=== PATIENT | female | born 1950 | race Caucasian/White ===

== ENCOUNTER 2024-06-26 16:31 | Emergency (ER) | payer MEDICARE, MEDICAID, SELFPAY ==
[2024-06-26] VITALS (7 sets, daily range): BP systolic 102–132; BP diastolic 62–79; PULSE 80–106; RESP 16–22; TEMP 37.6; O2SAT 96–97
--- NOTE | ~2024-06-26 | XR_ITS ---
CHEST RADIOGRAPH CLINICAL HISTORY: cough . COMPARISON: None available TECHNIQUE: Single portable view of the chest. FINDINGS Right internal jugular central venous port catheter identified with its tip projecting over the cavoa trial junction. The remainder of the cardiomediastinal silhouette is otherwise unremarkable. The lungs are clear. IMPRESSION: No focal infiltrate or effusion. Reviewed, dictated and finalized at location A. TER PROCESSED FILM
--- NOTE | 2024-06-26 17:17 | ED.URI ---
HPI - URI/Sore Throat General Chief Complaint: Upper Respiratory Infection Stated Complaint: weakness Time Seen by Provider: 06/26/24 17:06 History of Present Illness HPI Narrative: Patient presenting with cough, congestion, shortness of breath. No CP, abd pain, n/v. Related Data Allergies Allergy/AdvReac Type Severity Reaction Status Date / Time No Known Allergies Allergy Unverified 12/11/15 12:39 Review of Systems Review of Systems: All systems reviewed & are unremarkable except as noted in HPI and below Exam Narrative: EXAMINATION OF ORGAN SYSTEMS/BODY AREAS: Constitutional: Vital signs per nursing GENERAL: Actively coughing HEAD: Normal with no signs of head trauma. EYES: EOMI, conjunctiva normal ENT: Hearing grossly intact LUNGS: Coughing; some wheezes HEART: [Regular rate and rhythm] ABD: [Soft], [nontender to palpation] EXT: Normal range of motion SKIN: [No rashes or lesions.] NEURO: [Alert. No gross focal sensory or strength deficits.] PSYCH: Normal affect Course Vital Signs Vital signs: Vital Signs Temperature 99.6 F 06/26/24 16:31 Pulse Rate 104 H 06/26/24 16:31 Respiratory Rate 19 06/26/24 16:31 Blood Pressure 130/62 06/26/24 16:31 Pulse Oximetry 96 06/26/24 16:31 Oxygen Delivery Room Air 06/26/24 16:31 Temperature 99.6 F 06/26/24 16:31 Pulse Rate 102 H 06/26/24 17:40 Respiratory Rate 22 H 06/26/24 17:40 Blood Pressure 130/62 06/26/24 16:31 Pulse Oximetry 96 06/26/24 16:31 Oxygen Delivery Room Air 06/26/24 17:22 MDM - URI/Sore Throat MDM Narrative Medical decision making narrative: ED COURSE AND MEDICAL DECISION MAKING: This 74 year old patient presents with symptoms most suggestive of viral upper respiratory tract infection. She is coughing continuously. Patient is treated symptomatically with DuoNeb On reevaluation, she states she feels much better, she is now sleeping comfortably. She did test positive for flu, given her age and risk factors I will start her on Tamiflu, she will be discharged back to [facility] in stable condition with expectant management. Return precautions were provided. Lab Data Labs: Lab Results 02/13/25 Range/Units 17:14 Influenza A (RT-PCR) Positive A (Negative) Influenza B (RT-PCR) Negative (Negative) RSV (RT-PCR) Negative (Negative) SARS-CoV-2 RNA (RT-PCR) Negative (Negative) Discharge Plan Discharge Clinical Impression: Influenza Patient Disposition: NH Snf/Asst Living Condition: Stable Instructions: Influenza (ED) Additional Instructions: Please follow up with your doctor; you can always return for any further issues. Patient Language: Afghan Prescriptions: New oseltamivir [Tamiflu] 75 mg capsule 75 mg PO Q12H 5 Days Qty: 10 0RF acetaminophen [Tylenol Extra Strength] 500 mg tablet 1,000 mg PO Q6H PRN (Reason: pain) Qty: 50 0RF albuterol sulfate 90 mcg/actuation HFA aerosol inhaler 2 puff inhalation QID PRN (Reason: shortness of breath or wheezing) Qty: 8.5 0RF fluticasone propionate [Allergy Relief (fluticasone)] 50 mcg/actuation spray,suspension 1 spray intranasal DAILY Qty: 16 0RF Rx Instructions: administer into each nostril Follow-up/Referrals: Reji,AILIN Ryan [Primary Care Provider] - 2 Days
--- OUTSIDE RECORDS SUMMARY | 2024-06-26 17:28 | XMS_ITS | Clinical Summary ---
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 This disclosure is being madepursuant to the Care Everywhere program and may not contain all information available regarding this patient. Last updated [email or web address] Allergies No known active allergies Medications * Be aware that medications may not be up to date on this document. Alwaysverify current medications with the patient. Medication Sig Dispensed Refills Start Date End Date Status atorvastatin (LIPITOR) 40 MG tablet Take 40 mg by mouth once daily Active MULTIPLE VITAMIN PO Activ e gabapentin PHN (GRALISE) 300 MG tablet Take 300 mg by mouth daily with dinner Active ezetimibe (ZETIA) 10 MG tablet Take 10 mg by mouth once daily Active busPIRone (BUSPAR) 5 MG tablet Take 5 mg by mouth 2 times daily Active fenofibrate (FENOGLIDE) 120 MG Take 120 mg by mouth once daily Active donepezil (ARICEPT) 10 MG tablet Take 10 mg by mouth at bedtime Active losartan (COZAAR) 25 MG tablet Take 25 mg by mouth once daily Active acetaminophen (TYLENOL) 325 MG tablet Take 2 (two) tablets by mouth every 4 hours Maximum allowable Acetaminophen amount = 4 Grams (4000 mg) / 24 hours. 08/03/2021 Active trimethobenzamide (TIGAN) injection Inject 2 mL into muscle once as needed for Nausea/Vomiting 08/03/2021 Active bisacodyl (DULCOLAX) 10 MG suppository Insert 1 (one) suppository into the rectum once daily as needed for Constipation 08/03/2021 Active polyethylene glycol 3350 (MIRALAX) 17 g packet Take 17 (seventeen) g by mouth 2 times daily 08/03/2021 Active senna-docusate (SENOKOT-S) 8.6-50 MG tablet Take 1 (one) tablet by mouth 2 times daily 08/03/2021 Active vitamin D3 (CHOLECALCIFEROL) 25 MCG (1000 UNITS) tablet Take 1 (one) tablet by mouth once daily 08/03/2021 Active alendronate (FOSAMAX) 70 MG tablet Take 1 (one) tablet by mouth every 7 days before meal Take in morning with full glass of water on empty stomach and remain upright for 30 min 4 tablet 08/03/2021 Active memantine ER 24 hr (NAMENDA XR) 14 MG capsule Take 1 (one) capsule by mouth once daily 0 08/03/2021 Active atorvastatin (LIPITOR) 40 MG tablet Take 40 mg by mouth at bedtime Active Active Problems Problem Noted Date Diagnosed Date Dementia, vascular 08/01/2021 Impaired mobility 07/25/2021 Acute blood loss anemia 07/25/2021 Fall 07/24/2021 Open fracture of left femur 07/24/2021 Immunizations Name Administration Dates Next Due TDAP (7yrs+) 07/24/2021 Social History Tobacco Use Types Packs/Day Years Used Date Smoking Tobacco: Never Smokeless Tobacco: Never Alcohol Use Standard Drinks/Week Comments Never 0 (1 standard drink = 0.6 oz pur e alcohol) AUDIT-C Answer Date Recorded Q1: How often do you have a drink containing alc ohol? Never 07/24/2021 Average Number of Drinks Not on file 022 Q3: How often do you have si x or more drinks on one occasion? Never 07/24/2021 Sex and Gender Information Value Date Recorded Sex Assigned at Not on file Gender Identity Not on file Sexual Orientation Not on file Last Filed Vital Signs Vital Sign Reading Time Taken Comments Blood Pressure 133/66 08/03/2021 11:37 AM CDT Pulse 86 08/03/2021 11:37 AM CDT Temperature 36.7 C (98.1 F) 08/03/2021 11:37 AM CDT Respiratory Rate 18 08/03/2021 11:37 AM CDT Oxygen Saturation 96% 08/03/2021 11:37 AM CDT Inhaled Oxygen Concentration 21% 08/03/2021 4 :18 AM CDT Weight 101.2 kg (223 lb) 12/26/2021 11:29 AM CDT Height 165.1 cm (5' 5 ) 11/21/2021 12:22 PM CDT Body Mass Index 37.11 11/21/2021 12:22 PM CDT Plan of Treatment Health Maintenance Due Date Last Done Comments BONE DENSITY TESTING 1950 COLOGUARD (AGES 45-75) - COL ON CA SCREENING 1950 COLON MONITORING 1950 COLONOSCOPY - COLON CA SCREENING 1950 CT COLONOGRAPHY - COLON CA SCREENING 1950 Colorectal Cancer Screening 1950 FIT - COLON CA SCREENING 1950 FLEX SIG - COLON CA SCREENING 1950 MAMMOGRAM 1950 MEDICARE AWV 12 MONTHS 1950 HEPATITIS C SCREENING 04/25/1968 PNEUMOCOCCAL VACCINE 50+ (1 of 1 - PCV) 2000 ZOSTER VACCINE (1 of 2) 2000 Respiratory Syncytial Virus (RSV) Vaccine Pt: or over 60 yrs (1 - Risk 60-74 years 1-dose series) 2010 COVID-19 VACCINE ( - 2023-2 5 season) 2024 INFLUENZA VACCINE (#1) 2024 7, 04/25/2016, 03/12/2015 DEPRESSION SCREENING 05/14/2024 DTAP/TDAP/TD VACCINES (2 - T d or Tdap) 07/25/2031 07/24/2021 HEPATITIS B VACCINE Aged Out No longe r eligible based on patient's age to complete this topic HIB VACCINE Aged Out No longer eligi ble based on patient's age to complete this topic HPV VACCINE Aged Out No longer eligi ble based on patient's age to complete this topic MENINGOCOCCAL (Group B) VACCINE Aged Out No longer eligible b ased on patient's age to complete this topic MENINGOCOCCAL VACCINE Aged Out No yonathan melissa eligible based on patient's age to complete this topic Medical Devices Implanted Type Area Benefits Officer Device Identifier Shelf Expiration Date Model / Serial / Lot Pin Hlf 255mm 5mm Jtx Lng Ss 35mm Extfix Implanted:Qty: 2 on 07/24/2021 by Ray David MD at [facility] Left: Femur [employer] [id number] / / Pin Hlf 225mm 5mm Jtx Lng Orth Ss 40mm Implanted:Qty: 2 on 07/24/2021 by Ray David MD at [facility] Left: Femur [employer] [id number] / / Screw 4.5mm 40mm Ft Hex Fem Rodrigue Dist Implanted:Qty: 1 on 07/27/2021 by Malena Simon MD at [facility] Left: Femur [employer] [id number] / / Screw 4.5mm 42mm Ft Rodrigue Nonster Bone Implanted:Qty: 1 on 07/27/2021 by Malena Simon MD at [facility] Left: Femur [employer] [id number] / / Plate 12 Hl Lck Precontr Fem Lt Dist Implanted:Qty: 1 on 07/27/2021 by Malena Simon MD at [facility] Left: Femur [employer] 12/20/2026 [id number] / / [id number] Screw 8mm 85mm Ft Maribeth Lck Fem Tib Prox Implanted:Qty: 1 on 07/27/2021 by Malena Simon MD at [facility] Left: Femur [employer] [id number] / / Screw 5.5mm 80mm Ft Pa Lck Tib Canc Prox Implanted:Qty: 1 on 07/27/2021 by Malena Simon MD at [facility] Left: Femur [employer] [id number] / / Screw 5.5mm 75mm Ft Pa Lck Tib Canc Prox Implanted:Qty: 3 on 07/27/2021 by Malena Simon MD at [facility] Left: Femur [employer] [id number] / / Screw 4.5mm 38mm Ft [employer] Nonster Bone Implanted:Qty: 2 on 07/27/2021 by Malena Simon MD at [facility] Left: Femur [employer] [id number] / / Explanted Type Area Benefits Officer Device Identifier Shelf Expiration Date Model / Serial / Lot Gd Pin Orth 3.2mm Polyax Fem Clbrt Lck Explanted:Qty: 1 on 07/27/2021 by Malena Simon MD at [facility] Left: Femur [employer] [id number] / / Wire K 1.6mm 6in Hlf Bynt Pnt Ss Fx Explanted:Qty: 2 on 07/27/2021 by Malena Simon MD at [facility] Left: Femur [employer] [id number] / / Advance Directives * Full Code (Latest Code Status on File) Date Activated Date Inactivated Comments 07/24/2021 5:34 PM 08/03/2021 2:33 PM Care Teams [employer] Work Supervisor Relationship Specialty Start Date End Date Mendez Mendoza, JANELL-JOSE [address] [place] [id number] PCP - General 07/25/21
--- OUTSIDE RECORDS SUMMARY | 2024-06-26 17:28 | XMS_ITS | Patient Health Summary ---
Author Organization [facility] Chat [employer] Address [address] [address] Care Team Providers Care Salad Counter Attendant Name Role Phone Mendez Mendoza SPECIAL SKILLS OFFICER-CORRESPONDENCE COORDINATOR Primary Care Provider Note from [facility],non-owned Affiliates and Associated Physician Practices is amultiple site organization consisting of ambulatory clinics and hospital sitesin [place], [place], [place] and [place]. This disclosure is being madepursuant to the Care Everywhere program and may not contain all information available regarding this patient. Last updated 18.[facility] [employer] Allergies No known active allergies Medications * Be aware that medications may not be up to date on this document. Alwaysverify current medications with the patient. * atorvastatin (LIPITOR) 40 MG tablet Take 40 mg by mouth once daily * MULTIPLE VITAMIN PO * gabapentin PHN (GRALISE) 300 MG tablet Take 300 mg by mouth daily with dinner * ezetimibe (ZETIA) 10 MG tablet Take 10 mg by mouth once daily * busPIRone (BUSPAR) 5 MG tablet Take 5 mg by mouth 2 times daily * fenofibrate (FENOGLIDE) 120 MG Take 120 mg by mouth once daily * donepezil (ARICEPT) 10 MG tablet Take 10 mg by mouth at bedtime * losartan (COZAAR) 25 MG tablet Take 25 mg by mouth once daily * acetaminophen (TYLENOL) 325 MG tablet(Started 08/03/2021) Take 2 (two) tablets by mouth every 4 hours Maximum allowable Acetaminophen amount = 4 Grams (4000 mg) / 24 hours. * trimethobenzamide (TIGAN) injection(Started 08/03/2021) Inject 2 mL into muscle once as needed for Nausea/Vomiting * bisacodyl (DULCOLAX) 10 MG suppository(Started 08/03/2021) Insert 1 (one) suppository into the rectum once daily as needed for Constipation * polyethylene glycol 3350 (MIRALAX) 17 g packet(Started 08/03/2021) Take 17 (seventeen) g by mouth 2 times daily * senna-docusate (SENOKOT-S) 8.6-50 MG tablet(Started 08/03/2021) Take 1 (one) tablet by mouth 2 times daily * vitamin D3 (CHOLECALCIFEROL) 25 MCG (1000 UNITS) tablet(Started 08/03/2021) Take 1 (one) tablet by mouth once daily * alendronate (FOSAMAX) 70 MG tablet(Started 08/03/2021) Take 1 (one) tablet by mouth every 7 days before meal Take in morning with full glass of water on empty stomach and remain upright for 30 min * memantine ER 24 hr (NAMENDA XR) 14 MG capsule(Started 08/03/2021) Take 1 (one) capsule by mouth once daily * atorvastatin (LIPITOR) 40 MG tablet Take 40 mg by mouth at bedtime Active Problems Problem Noted Date Diagnosed Date Dementia, vascular 08/01/2021 Impaired mobility 07/25/2021 Acute blood loss anemia 07/25/2021 Fall 07/24/2021 Open fracture of left femur 07/24/2021 Immunizations * TDAP (7yrs+)(Given 07/24/2021) Social History Tobacco Use Types Packs/Day Years [...] Mass Index 37.11 11/21/2021 12:22 PM CDT Medical Devices Implanted Type Area Center Aisle Cashier Device Identifier Shelf Expiration Date Model / Serial / Lot Pin Hlf 255mm 5mm Jtx Lng Ss 35mm Extfix Implanted:Qty: 2 on 07/24/2021 by Ray David MD at [facility] Left: Femur [employer] [id number] / / Pin Hlf 225mm 5mm Jtx Lng Orth Ss 40mm Implanted:Qty: 2 on 07/24/2021 by Ray David MD at [facility] Left: Femur [employer] [id number] / / Screw 4.5mm 40mm Ft Hex Fem Rodrigue Dist Implanted:Qty: 1 on 07/27/2021 by Malena Simon MD at [facility] Left: Femur [employer] [id number] / / Screw 4.5mm 42mm Ft Rodrigue Nonster Bone Implanted:Qty: 1 on 07/27/2021 by Malena Simon MD at [facility] Left: Femur [employer] [id number] / / Plate 12 Hl Lck Precontr Fem Lt Dist Implanted:Qty: 1 on 07/27/2021 by Malena Simon MD at [facility] Left: Femur [employer] 12/20/2026 [id number] / / [id number] Screw 8mm 85mm Ft Maribeth Lck Fem Tib Prox Implanted:Qty: 1 on 07/27/2021 by Malena Simon MD at [facility] Left: Femur [employer] [id number] / / Screw 5.5mm 80mm Ft Pa Lck Tib Canc Prox Implanted:Qty: 1 on 07/27/2021 by Malena Simon MD at [facility] Left: Femur [employer] [id number] / / Screw 5.5mm 75mm Ft Pa Lck Tib Canc Prox Implanted:Qty: 3 on 07/27/2021 by Malena Simon MD at [facility] Left: Femur [employer] [id number] / / Screw 4.5mm 38mm Ft Rodrigue Nonster Bone Implanted:Qty: 2 on 07/27/2021 by Malena Simon MD at [facility] Left: Femur [employer] [id number] / / Explanted Type Area Center Aisle Cashier Device Identifier Shelf Expiration Date Model / Serial / Lot Gd Pin Orth 3.2mm Polyax Fem Clbrt Lck Explanted:Qty: 1 on 07/27/2021 by Malena Simon MD at [facility] Left: Femur [employer] [id number] / / Wire K 1.6mm 6in Hlf Bynt Pnt Ss Fx Explanted:Qty: 2 on 07/27/2021 by Malena Simon MD at [facility] Left: Femur [employer] [id number] / / Procedures * XR FEMUR LEFT 2VW(Performed 12/26/2021) Performed for Periprosthetic fracture of femur at tip of prosthesis, subsequent encounter * XR FEMUR LEFT 2VW(Performed 11/21/2021) Performed for Periprosthetic fracture of femur at tip of prosthesis, subsequent encounter * APHERESIS/TRANSFUSION ORDER(Performed 09/30/2021) * XR FEMUR LEFT 2VW(Performed 09/12/2021) Performed for Type III open fracture of left femur, unspecified fracture morphology, unspecified portion of femur, initial encounter ([facility]) * PHOSPHORUS BLOOD(Performed 08/03/2021) * MAGNESIUM BLOOD(Performed 08/03/2021) * BASIC METABOLIC PANEL (CALCIUM TOTAL)(Performed 08/03/2021) * CBC W AUTO DIFFERENTIAL(Performed 08/03/2021) * SARS-COV-2 (COVID-19) RAPID(Performed 08/02/2021) * TSH REFLEX FREE T4(Performed 08/02/2021) * VITAMIN B12(Performed 08/02/2021) * SYPHILIS ANTIBODY CASCADING REFLEX(Performed 08/02/2021) * PHOSPHORUS BLOOD(Performed 08/02/2021) * MAGNESIUM BLOOD(Performed 08/02/2021) * BASIC METABOLIC PANEL (CALCIUM TOTAL)(Performed 08/02/2021) * CBC W AUTO DIFFERENTIAL(Performed 08/02/2021) * XR ABDOMEN KUB PORTABLE(Performed 08/01/2021) Performed for Type I or II open fracture of left femur, unspecified fracture morphology, unspecified portion of femur, initial encounter ([facility]) * VITAMIN D 25-HYDROXY(Performed 08/01/2021) * TSH REFLEX FREE T4(Performed 08/01/2021) * PHOSPHORUS BLOOD(Performed 08/01/2021) * MAGNESIUM BLOOD(Performed 08/01/2021) * BASIC METABOLIC PANEL (CALCIUM TOTAL)(Performed 08/01/2021) * CBC W AUTO DIFFERENTIAL(Performed 08/01/2021) * PHOSPHORUS BLOOD(Performed 07/31/2021) * MAGNESIUM BLOOD(Performed 07/31/2021) * BASIC METABOLIC PANEL (CALCIUM TOTAL)(Performed 07/31/2021) * CBC W AUTO DIFFERENTIAL(Performed 07/31/2021) * PHOSPHORUS BLOOD(Performed 07/30/2021) * MAGNESIUM BLOOD(Performed 07/30/2021) * BASIC METABOLIC PANEL (CALCIUM TOTAL)(Performed 07/30/2021) * CBC W AUTO DIFFERENTIAL(Performed 07/30/2021) * SARS-COV-2 (COVID-19) RAPID(Performed 07/29/2021) * GLUCOSE - POINT OF CARE(Performed 07/29/2021) * PREPARE RBC LEUKOREDUCED UNIT(Performed 07/29/2021) * TYPE + SCREEN PANEL(Performed 07/29/2021) * PHOSPHORUS BLOOD(Performed 07/29/2021) * MAGNESIUM BLOOD(Performed 07/29/2021) * BASIC METABOLIC PANEL (CALCIUM TOTAL)(Performed 07/29/2021) * CBC W AUTO DIFFERENTIAL(Performed 07/29/2021) * PHOSPHORUS BLOOD(Performed 07/28/2021) * MAGNESIUM BLOOD(Performed 07/28/2021) * BASIC METABOLIC PANEL (CALCIUM TOTAL)(Performed 07/28/2021) * CBC W AUTO DIFFERENTIAL(Performed 07/28/2021) * PREPARE RBC LEUKOREDUCED UNIT(Performed 07/28/2021) * PREPARE RBC LEUKOREDUCED UNIT(Performed 07/28/2021) * CBC W/O DIFFERENTIAL(Performed 07/27/2021) * XR FEMUR LEFT 2VW(Performed 07/27/2021) Performed for Type I or II open fracture of left femur, unspecified fracture morphology, unspecified portion of femur, initial encounter ([facility]) * FL DINO SURGERY(Performed 07/27/2021) Performed for Type III open fracture of neck of left femur, initial encounter ([facility]) * CULTURE WOUND+GRAM STAIN(Performed 07/27/2021) * CULTURE ANAEROBE(Performed 07/27/2021) * TRANSFUSE RED BLOOD CELL LEUKOREDUCED UNIT(S)(Performed 07/27/2021) * PREPARE RBC LEUKOREDUCED UNIT(Performed 07/27/2021) * REMOVAL EXTERNAL FIXATION LOWER EXTREMITY(Performed 07/27/2021) Performed for Closed fracture of left femur with routine healing, unspecified fracture morphology, unspecified portion of femur, subsequent encounter * OPEN REDUCTION INTERNAL FIXATION (ORIF) FEMUR(Performed 07/27/2021) Performed for Closed fracture of left femur with routine healing, unspecified fracture morphology, unspecified portion of femur, subsequent encounter * ENDOTRACHEAL TUBE NOTE(Performed 07/27/2021) * PHOSPHORUS BLOOD(Performed 07/27/2021) * MAGNESIUM BLOOD(Performed 07/27/2021) * BASIC METABOLIC PANEL (CALCIUM TOTAL)(Performed 07/27/2021) * CBC W AUTO DIFFERENTIAL(Performed 07/27/2021) * PHOSPHORUS BLOOD(Performed 07/26/2021) * MAGNESIUM BLOOD(Performed 07/26/2021) * BASIC METABOLIC PANEL (CALCIUM TOTAL)(Performed 07/26/2021) * CBC W AUTO DIFFERENTIAL(Performed 07/26/2021) * PT EVAL AND TREAT(Performed 07/25/2021) * OT EVAL AND TREAT(Performed 07/25/2021) * HEPATIC FUNCTION PANEL(Performed 07/25/2021) * PHOSPHORUS BLOOD(Performed 07/25/2021) * MAGNESIUM BLOOD(Performed 07/25/2021) * BASIC METABOLIC PANEL (CALCIUM TOTAL)(Performed 07/25/2021) * CBC W AUTO DIFFERENTIAL(Performed 07/25/2021) * XR FEMUR LEFT 2VW(Performed 07/24/2021) Performed for Type I or II open fracture of left femur, unspecified fracture morphology, unspecified portion of femur, initial encounter ([facility]), Type I or II open displaced fracture of lateral condyleof left femur, initial encounter ([facility]) * FL DINO SURGERY(Performed 07/24/2021) Performed for Fall, initial encounter * OPEN REDUCTION INTERNAL FIXATION (ORIF) FEMUR(Performed 07/24/2021) Performed for Fracture * ENDOTRACHEAL TUBE NOTE(Performed 07/24/2021) * CT ANGIO LOWER EXTREMITY LEFT(Performed 07/24/2021) Performed for Fall, initial encounter * CT FACIAL BONES WO CONTRAST(Performed 07/24/2021) Performed for Fall, initial encounter * CT CHEST ABDOMEN PELVIS W CONT(Performed 07/24/2021) Performed for Fall, initial encounter * CT LUMBAR SPINE WO CONTRAST(Performed 07/24/2021) Performed for Fall, initial encounter * CT THORACIC SPINE WO CONTRAST(Performed 07/24/2021) Performed for Fall, initial encounter * CT CERVICAL SPINE WO CONTRAST(Performed 07/24/2021) Performed for Fall, initial encounter * CT HEAD WO CONTRAST(Performed 07/24/2021) Performed for Fall, initial encounter * TROPONIN I(Performed 07/24/2021) * BASIC METABOLIC PANEL (CALCIUM TOTAL)(Performed 07/24/2021) * BLOOD TYPE VERIFICATION(Performed 07/24/2021) * XR PELVIS 1 OR 2VW(Performed 07/24/2021) Performed for Fall, initial encounter * XR FEMUR LEFT 2VW(Performed 07/24/2021) Performed for Fall, initial encounter * XR CHEST 1VW PORTABLE(Performed 07/24/2021) Performed for Fall, initial encounter * TYPE + SCREEN PANEL(Performed 07/24/2021) * PTT [facility](Performed 07/24/2021) * CK BLOOD(Performed 07/24/2021) * TEG 6S PLATELET MAPPING(Performed 07/24/2021) * TEG 6 GLOBAL HEMOSTASIS W/ LYSIS(Performed 07/24/2021) * PT-INR [facility](Performed 07/24/2021) * CBC W AUTO DIFFERENTIAL(Performed 07/24/2021) * ALCOHOL ETHYL BLOOD(Performed 07/24/2021) * PREPARE WHOLE BLOOD UNIT(S)(Performed 07/24/2021) Results * XR FEMUR LEFT 2VW (12/26/2021 10:58 AM CDT) Only the most recent of6 resultswithin the time period is included. Anatomical Region Laterality Modality Lower Extremity Radiographic Domi ging 12/26/2021 12:2 6 PM CDT Impressions 12/26/2021 12:27 PM CDT IMPRESSION: Distal femoral periprosthetic fracture with internal fixation, unchanged in alignment. > Interpreting Provider: Gregory Iniguez MD on 12/26/2021 12:27 PM Narrative 12/26/2021 12:27 PM CDT PROCEDURE: XR FEMUR LEFT 2VW, DATE/TIME OF EXAM: 12/26/2021 10:58 AM, [facility] INDICATION: M97.8XXD: Periprosthetic fracture of femur at tip of prosthesis, subsequent encounter Z96.649: Periprosthetic fracture of femur at tip of prosthesis, subsequent encounter ADDITIONAL CLINICAL INFORMATION: Ordering Provider Reason For Exam: fracture Technologist Note: Additional: COMPARISON: 11/21/2021 TECHNIQUE: FINDINGS: There are postsurgical changes of total knee arthroplasty and open reduction and internal fixation of a distal femoral periprosthetic fracture with a lateral plate and screws. The fracture fixation hardware is intact and the fracture is unchanged in alignment. Callus is visible. The femur is osteopenic. Procedure Note Gregory Iniguez MD - 12/26/2021 PROCEDURE: XR FEMUR LEFT 2VW, DATE/TIME OF EXAM: 12/26/2021 10:58 AM, LOCATION [facility] INDICATION: M97.8XXD: Periprosthetic fracture of femur at tip of prosthesis,subsequent encounter Z96.649: Periprosthetic fracture of femur at tip of prosthesis,subsequent encounter ADDITIONAL CLINICAL INFORMATION: Ordering Provider Reason For Exam: fracture Technologist Note: Additional: COMPARISON: 11/21/2021 TECHNIQUE: FINDINGS: There are postsurgical changes of total knee arthroplasty and open reduction and internal fixation of a distal femoral periprostheticfracture with a lateral plate and screws. The fracture fixation hardware isintact and the fracture is unchanged in alignment. Callus is visible. The femuris osteopenic. IMPRESSION: Distal femoral periprosthetic fracture with internalfixation, unchanged in alignment. > Interpreting Provider: Gregory Iniguez MD on 12/26/2021 12:27 PM Malena Simon MD DIAGNOSTIC IMAGING ORDERABLES * APHERESIS/TRANSFUSION ORDER (09/30/2021 3:13 PM CDT) Narrative 09/30/2021 3:13 PM CDT Ordered by an unspecified provider. Scanned Document NURSING - VITAL SIGN S AND ASSESSMENT * (ABNORMAL) CBC W AUTO DIFFERENTIAL (08/03/2021 2:44 AM CDT) Only the most recent of11 resultswithin the time period is included. WBC 9.4 3.5 - 10.5 10 3/uL 08/03/2021 3:44 AM [facility] RBC 3.26(L) 3.80 - 5.20 10 6/uL 08/03/2021 3:44 AM [facility] Hemoglobin 8.6(L) 12.0 - 15.6 g/dL 08/03/2021 3:44 AM [facility] Hematocrit 29.1(L) 35.0 - 45.0 % 08/03/2021 3:44 AM [facility] MCV 89.3 80.7 - 98.3 fL 08/03/2021 3:44 AM [facility] MCH 26.4(L) 26.7 - 34.0 pg 08/03/2021 3:44 AM [facility] MCHC 29.6(L) 30.8 - 35.9 g/dL 08/03/2021 3:44 AM [facility] Platelet Count 398 150 - 400 10 3/uL 08/03/2021 3:44 AM [facility] RDW-SD 57.1(H) 36.0 - 50.0 fL 08/03/2021 3:44 AM [facility] RDW-CV 18.8(H) 11.2 - 14.8 % 08/03/2021 3:44 AM [facility] MPV 9.8 9.4 - 12.9 fL 08/03/2021 3:44 AM [facility] nRBC Absolute 0.00 0 10 3/uL 08/03/2021 3:44 AM [facility] nRBC Auto 0.0 0 /100 WBC 08/03/2021 3:44 AM [facility] Neutrophils % 70.5(H) 35.0 - 70.0 % 08/03/2021 3:44 AM [facility] Lymphocytes % 18.5(L) 20.0 - 43.0 % 08/03/2021 3:44 AM [facility] Monocytes % 6.7 5.0 - 13.0 % 08/03/2021 3:44 AM [facility] Eosinophils % 3.6 0.0 - 6.0 % 08/03/2021 3:44 AM [facility] Basophil % 0.3 0.0 - 2.0 % 08/03/2021 3:44 AM [facility] Neutrophils Absolute 6.6 1.6 - 7.0 10 3/uL 08/03/2021 3:44 AM [facility] Lymphocyte Absolute 1.7 1.1 - 3.9 10 3/uL 08/03/2021 3:44 AM [facility] Monocytes Absolute 0.63 0.26 - 1.07 10 3/uL 08/03/2021 3:44 AM [facility] Eosinophils Absolute 0.34 0.00 - 0.47 10 3/uL 08/03/2021 3:44 AM [facility] Basophils Absolute 0.03 0.00 - 0.08 10 3/uL 08/03/2021 3:44 AM [facility] Immature Granulocytes % 0.4 0.0 - 1.0 % 08/03/2021 3:44 AM [facility] Immature Granulocytes Absolute 0.04 08/03/2021 3:44 AM [facility] Blood BLOOD SPECIMEN / Unknown Lab Venipuncture / Unknown 08/03/2021 2:44 AM CDT 08/03/2021 3:23 AM T Ray Guardado MD LAB - HEMATOLOGY RENETTA CUI Performing Organization Address [facility]/ZIP Co de Phone Number [facility] [address] [place] [address], [facility] [phone] * (ABNORMAL) BASIC METABOLIC PANEL (CALCIUM TOTAL) (08/03/2021 2:44 AM CDT) Only the most recent of11 resultswithin the time period is included. BUN 14 7 - 26 mg/dL 08/03/2021 3:56 AM [facility] Creatinine 0.49(L) 0.56 - 0.96 mg/dL 08/03/2021 3:56 AM [facility] Sodium 141 136 - 145 mmol/L 08/03/2021 3:56 AM [facility] Potassium 3.7 3.5 - 4.5 mmol/L 08/03/2021 3:56 AM [facility] Chloride 108(H) 98 - 107 mmol/L 08/03/2021 3:56 AM [facility] CO2 22 22 - 29 mmol/L 08/03/2021 3:56 AM [facility] Glucose 75 70 - 115 mg/dL 08/03/2021 3:56 AM [facility] Calcium 8.5 8.4 - 10.2 mg/dL 08/03/2021 3:56 AM [facility] Anion Gap 15 8 - 18 08/03/2021 3:56 AM [facility] BUN/Creatinine Ratio 29(H) 7 - 23 08/03/2021 3:56 AM [facility] Osmolality Calculated 291 270 - 300 mOsm/kg 08/03/2021 3:56 AM [facility] eGFR by CKD-EPI >90 >=90 mL/min/1.7 3 m2 08/03/2021 3:56 AM [facility] Blood BLOOD SPECIMEN / Unknown Lab Venipuncture / Unknown 08/03/2021 2:44 AM CDT 08/03/2021 3:22 AM CDT Ray Guardado MD LAB - CHEMISTRY JASPREET SPICER [address] [address], [facility] [phone] * PHOSPHORUS BLOOD (08/03/2021 2:44 AM CDT) Only the most recent of10 resultswithin the time period is included. Phosphorus 3.1 2.9 - 5.1 mg/dL 08/03/2021 3:56 AM CDT [facility] Blood BLOOD SPECIMEN / Unknown Lab Venipuncture / Unknown 08/03/2021 2:44 AM CDT 08/03/2021 3:22 AM CDT Ray Guardado MD LAB - CHEMISTRY JASPREET SPICER Performing Organization Address [facility] Co de Phone Number [address] [address], [facility] [phone] * MAGNESIUM BLOOD (08/03/2021 2:44 AM CDT) Only the most recent of10 resultswithin the time period is included. Magnesium 1.8 1.6 - 2.6 mg/dL 08/03/2021 3:56 AM CDT [facility] Blood BLOOD SPECIMEN / Unknown Lab Venipuncture / Unknown 08/03/2021 2:44 AM CDT 08/03/2021 3:22 AM CDT Ray Guardado MD LAB - CHEMISTRY JASPREET SPICER Performing Organization Address City/[facility]/ZIP Co de Phone Number [address] [address], [facility] [phone] * SARS-COV-2 (COVID-19) RAPID (08/02/2021 4:04 PM CDT) Only the most recent of2 resultswithin the time period is included. COVID-19 PCR Not detected Not detected 08/03/19 4:51 PM CDT [facility] Microbiology SPECIMEN FROM NASOPHARYNGEAL STRUCTURE / Unknown Collection / Unknown 08/02/2021 4:04 PM CDT 08/02/2021 4:09 PM CDT Narrative [facility] - 08/02/2021 4:51 PM CDT The Cepheid Xpert Xpress SARS-COV-2 has been authorized by the Food and Drug Administration (FDA) under an Emergency Use Authorization (EUA). This test has been validated in accordance with the FDA's guidance document Policy for Diagnostic Testing in Laboratories Certified to perform High Complexity Testing under CLIA prior to Emergency Use Authorization for Coronavirus Disease-2019 during the Public Health Emergency issued on July 12, 2019. FDA independent review of this validation is pending. This test is only authorized for the duration of the time the declaration that circumstances exist justifying the authorization of emergency use of in vitro diagnostic tests for detection of SARS-COV-2 virus and/or diagnosis of COVID-19 infection under 564(b) (1) of the Act. 21 U.S.C. 360bbb-3 (b) (1), unless the authorization is terminated or revoked sooner. Fact Sheets for this EUA assay are available upon request. Concepción Calix MD LAB - MICROBIOLOGY O RDERABLES [address] [address], [facility] [phone] * SYPHILIS ANTIBODY CASCADING REFLEX (08/02/2021 2:11 AM CDT) Treponema pallidum Antibody Non-react dre Non-react dre 08/02/2021 3:22 AM CDT [facility] Comment: No Laboratory evidence of syphilis infection. Note: Circulating antibodies may be low or undetectable in early infection. If recent exposure is suspected, re-draw sample in 2-4 weeks and repeat testing. Blood BLOOD SPECIMEN / Unknown Lab Venipuncture / Unknown 08/02/2021 2:11 AM CDT 08/02/2021 2:33 AM CDT Concepción Calix MD LAB - SEROLOGY ORDER ARIEL Performing Organization Address City/[facility]/ZIP Co de Phone Number [address] [address], [facility] [phone] * TSH REFLEX FREE T4 (08/02/2021 2:11 AM CDT) Only the most recent of2 resultswithin the time period is included. TSH 2.131 0.350 - 4.940 uIU/mL 08/02/2021 3:25 AM CDT [facility] Blood BLOOD SPECIMEN / Unknown Lab Venipuncture / Unknown 08/02/2021 2:11 AM CDT 08/02/2021 2:33 AM CDT Concepción Calix MD LAB - CHEMISTRY JASPREET SPICER [facility] [address] [place] [address], [facility] [phone] * VITAMIN B12 (08/02/2021 2:11 AM CDT) Vitamin B12 507 213 - 816 pg/mL 08/02/2021 3:25 AM CDT [facility] Blood BLOOD SPECIMEN / Unknown Lab Venipuncture / Unknown 08/02/2021 2:11 AM CDT 08/02/2021 2:33 AM CDT Concepción Calix MD LAB - CHEMISTRY JASPREET SPICER [facility] [address] [place] [address], [facility] [phone] * XR ABDOMEN KUB PORTABLE (08/01/2021 2:38 PM CDT) Anatomical Region Laterality Modality Abdomen Radiographic Domi ging 08/01/2021 2:54 PM CDT Impressions 08/01/2021 4:02 PM CDT FINDINGS/IMPRESSION: Multiple gaseous distention of the large bowel are noted which may represent ileus. There is paucity of rectal gas, and radiographic follow-up is recommended. Mild left basilar streaky opacities may represent atelectasis/airspace disease. Surgical clips superimpose the right and left upper abdominal quadrants. Report dictated by Gamal Negrete M.D. (doctor of radiology). Dr. JESUS Mares M.D. have personally reviewed and interpreted this examination/study. This report was electronically signed by JESUS WHITAKER M.D. on 08/01/2021 4:02 PM . Narrative 08/01/2021 4:02 PM CDT EXAMINATION: XR ABDOMEN KUB PORTABLE HISTORY: S72.92XB: Type I or II open fracture of left femur, unspecified fracture morphology, unspecified portion of femur, initial encounter COMPARISON: None. Procedure Note Jesus Whitaker MD - 08/01/2021 EXAMINATION: XR ABDOMEN KUB PORTABLE HISTORY: S72.92XB: Type I or II open fracture of left femur, unspecified fracture morphology, unspecified portion of femur, initial encounter COMPARISON: None. FINDINGS/IMPRESSION: Multiple gaseous distention of the large bowel are noted which may represent ileus. There is paucity of rectal gas, and radiographic follow-up is recommended. Mild left basilar streaky opacities may represent atelectasis/airspace disease. Surgical clips superimpose the right and left upper abdominal quadrants. Report dictated by Gamal Negrete M.D. (doctor of radiology). Dr. JESUS Mares M.D. have personally reviewed andinterpreted this examination/study. This report was electronically signed by JESUS WHITAKER M.D. on 08/01/2021 4:02 PM . Concepción Calix MD DIAGNOSTIC IMAGING O RDERABLES * (ABNORMAL) VITAMIN D 25-HYDROXY (08/01/2021 2:05 AM CDT) Vitamin D, 25 Hydroxy 19.0(L) 30.0 - 80.0 ng/mL 08/01/2021 9:43 AM CDT [facility] Comment: The recommendations for 25-Hydroxy Vitamin D clinical decision points are as follows: Deficient: <20.0 ng/mL Insufficient: 20.0 - 29.9 ng/mL Sufficient: > or =30.0 ng/mL If the 25-Hydroxy Vitamin D results are inconsitent with clinical evidence, it is recommended that follow-up testing using a method such as LC/MS/MS be performed to confirm the result. Reference: The Endocrine Society Clinical Practice Guidelines. 2010 Blood BLOOD SPECIMEN / Unknown Lab Venipuncture / Unknown 08/01/2021 2:05 AM CDT 08/01/2021 2:21 AM CDT Kelly David Bernal [employer] OFFICER-[facility]ANCH[facility] LAB - CHEMISTR Y ORDERABLES [facility] [address] [place] [address], [place] [phone] * (ABNORMAL) GLUCOSE - POINT OF CARE (07/29/2021 11:41 AM CDT) [facility] Glucose WB/POC 126(H) 70 - 115 mg/dL 07/29/2021 11:42 AM CDT [facility] Specimen Type Arterial 07/29/2021 11:42 AM CDT [facility] Blood BLOOD SPECIMEN / Unknown 07/29/2021 11:41 AM CDT 07/29/2021 11:42 AM CDT Concepción Calix MD LAB - POINT OF CARE ORDERABLES Performing Organization Address City/[facility]/ZIP Co de Phone Number [address] [address], [place] [phone] * PREPARE (CROSSMATCH) RBC UNIT(S), 1 Units (07/29/2021 6:11 AM CDT) Only the most recent of4 resultswithin the time period is included. Pathologist [facility] Unit Description AS1 LR PRBC [facility] Unit ABO O [facility] Unit Rh NEG [facility] Product Number R02 [facility] B LOOD B[facility] Unit Donor # [id number] [facility] Unit Status transfused [facility] B[facility] OD [facility] Product Code [id number] [facility] BLO OD [facility] Blood Type Barcode 9500 [facility] Expiration Date S BLOOD BANK LAB Blood Bank BLOOD SPECIMEN / Unknown 07/29/2021 5:32 AM CDT Concepción Calix MD LAB - BLOOD BANK ORD ERABLES [facility] [address] [place] [address], [facility] [phone] * TYPE + SCREEN PANEL (07/29/2021 5:11 AM CDT) Only the most recent of2 resultswithin the time period is included. [facility] Antibody Screen NEG 6:09 AM CDT [facility] ABO Rh O NEG 07/29/2021 6:09 AM CDT [facility] Blood Bank BLOOD SPECIMEN / Unknown Lab Venipuncture / Unknown 07/29/2021 5:11 AM CDT 07/29/2021 5:32 AM CDT Concepción Calix MD LAB - BLOOD BANK ORD ERALAURA [facility] [address] [place] [address], [facility] [phone] * (ABNORMAL) CBC W/O DIFFERENTIAL (07/27/2021 6:19 PM CDT) [facility] WBC 13.1(H) 3.5 - 10.5 10 3/uL 07/27/2021 6:28 PM [facility] RBC 3.47(L) 3.80 - 5.20 10 6/uL 07/27/2021 6:28 PM T [facility] Hemoglobin 8.9(L) 12.0 - 15.6 g/dL 07/27/2021 6:28 PM [facility] Hematocrit 28.5(L) 35.0 - 45.0 % 07/27/2021 6:28 PM [facility] MCV 82.1 80.7 - 98.3 fL 07/27/2021 6:28 PM [facility] MCH 25.6(L) 26.7 - 34.0 pg 07/27/2021 6:28 PM CDT [facility] MCHC 31.2 30.8 - 35.9 g/dL 07/27/2021 6:28 PM CDT [facility] Platelet Count 247 150 - 400 10 3/uL 07/27/2021 6:28 PM CDT [facility] RDW-SD 43.8 36.0 - 50.0 fL 07/27/2021 6:28 PM CDT [facility] RDW-CV 14.9(H) 11.2 - 14.8 % 07/27/2021 6:28 PM CDT [facility] MPV 10.2 9.4 - 12.9 fL 07/27/2021 6:28 PM CDT [facility] nRBC Absolute 0.02(H) 0 10 3/uL 07/27/2021 6:28 PM CDT [facility] nRBC Auto 0.2(H) 0 /100 WBC 07/27/2021 6:28 PM CDT [facility] Blood BLOOD SPECIMEN / Unknown Venipuncture / Unknown 07/27/2021 6:19 PM CDT 07/27/2021 6:23 PM CDT Malena Simon MD LAB - HEMATOLOGY O RDERABLES [address] [address], [facility] [phone] * FL DINO SURGERY (07/27/2021 4:35 PM CDT) Only the most recent of2 resultswithin the time period is included. Narrative [facility] RADIOLOGY - 07/27/2021 4:35 PM CDT Fluoroscopy was used for this exam in the OR. Please see the Operative report. Malena Simon MD FLUOROSCOPY ORDERA BLES [facility] RADIOLOGY * CULTURE WOUND+GRAM STAIN (07/27/2021 4:20 PM CDT) Culture No growth KEYLA 07/29/2021 8:06 PM CDT [facility] MICROBIOLOGY Gram Stain No polymorphonuclear cells 07/29/2021 8:06 PM CDT [facility] MICROBIOLOGY Gram Stain Light Red blood cells 07/29/2021 8:06 PM CDT [facility] MICROBIOLOGY Gram Stain No organisms seen 022 8:06 PM CDT [facility] MICROBIOLOGY Microbiology SPECIMEN FROM WOUND / Unknown Collection / Unknown 07/27/2021 4:20 PM CDT 07/27/2021 4:26 PM CDT Malena Simon MD LAB - MICROBIOLOGY ORDERABLES Performing Organization Address [facility] de Phone Number [facility] MICROBIOLOGY [address] [place] [address], [facility] [phone] * CULTURE ANAEROBE (07/27/2021 4:20 PM CDT) Culture No anaerobic organisms isolated KEYLA 08/01/2021 9:36 AM CDT [facility] MICROBIOLOGY Microbiology SPECIMEN FROM WOUND / Unknown Collection / Unknown 07/27/2021 4:20 PM CDT 07/27/2021 4:26 PM CDT Malena Simon MD LAB - MICROBIOLOGY ORDERABLES Performing Organization Address [facility] Phone Number [facility] MICROBIOLOGY [address] [place] [address], [facility] [phone] * TRANSFUSE RED BLOOD CELL LEUKOREDUCED UNIT(S) (07/27/2021 3:43 PM CDT) Malena Simon MD NURSING - BLOOD MI OD TRANSFUSION * ETT LINE PERFORMABLE (07/27/2021 2:04 PM CDT) Narrative Adam Lyle - 07/27/2021 2:04 PM CDT Adam Lyle DO 07/27/2021 2:05 PM Endotracheal Tube Placement: Patient Location: OR. Intubation Event Date/Time: 07/27/2021 1:49 PM Procedure: intubation ([id number]). Procedure Section: Sedation: under general anesthesia. Indications for Airway Management: anesthesia Induction: standard IV Patient Position: sniffing and supine Mask Ventilation: easy and easy with oral airway. Blade Type: Jose Blade Size: 3 Laryngoscopy View: grade 2 (partial cords) Tube: endotracheal tube Placement: oral Tube type: cuff - inflated Tube Size (MM): 7 Measured From: gums Cuff Inflated With: air Number of Attempts: 1. Placement Verified By: direct visualization, bilateral breath sounds and CO2 detector Tube secured with: adhesive tape. Difficult Airway? No. Procedure Start Time: 07/27/2021 1:49 PM. Staff Section Anesthesia Provider: Adam Lyle DO, Performed the procedure Vadim Strong MD GENERAL ANESTHESIA O RDERALAURA * (ABNORMAL) HEPATIC FUNCTION PANEL (07/25/2021 4:28 AM CDT) Pathologist [facility] Protein Total 6.5 6.0 - 8.3 g/dL 022 5:21 AM [facility] Albumin 3.0(L) 3.4 - 5.0 g/dL 07/25/2021 5:21 AM [facility] Bilirubin Total 0.6 0.2 - 1.2 mg/dL 07/12 5:21 AM [facility] Bilirubin Conjugated 0.2 0.1 - 0.5 mg/dL 07/25/2021 5:21 AM [facility] Bilirubin Unconjugated 0.4 Unconjugated Bilirubin is a calculated value: Reference ranges have not been established. mg/dL 07/25/2021 5:21 AM [facility] Alkaline Phosphatase 68 40 - 150 U/L 07/25/2021 5:21 AM [facility] ALT 12 5 - 55 U/L 07/25/2021 5:21 AM [facility] AST 24 5 - 34 U/L 07/25/2021 5:21 AM [facility] Albumin/Globulin Ratio 0.9(L) 1.1 - 2.3 07/25/2021 5:21 AM [facility] Blood BLOOD SPECIMEN / Unknown Lab Venipuncture / Unknown 07/25/2021 4:28 AM CDT 07/25/2021 4:51 AM CDT Ray David MD LAB - CHEMISTRY JASPREET SPICER [facility] [address] [place] [address], [facility] [phone] * ETT LINE PERFORMABLE (07/24/2021 6:44 PM CDT) Narrative Chester Aguilar Anes Asst - 07/24/2021 6:44 PM CDT Chester Aguilar Anes Asst 07/24/2021 6:47 PM Endotracheal Tube Placement: Patient Location: OR. Intubation Event Date/Time: 07/24/2021 6:36 PM Procedure: intubation (91137). Procedure Section: Sedation: under general anesthesia. Indications for Airway Management: anesthesia Induction: standard IV Patient Position: sniffing and supine Mask Ventilation: easy. Blade Size: 3 Intubation Adjuncts: stylet and cricoid pressure Tube: endotracheal tube Placement: oral Tube type: cuff - inflated Tube Size (MM): 7 Depth of Insertion (CM): 23 Measured From: lips Cuff Inflated With: air Number of Attempts: 1. Placement Verified By: bilateral breath sounds, chest auscultation and CO2 monitor (Provu visualization) Tube secured with: adhesive tape and ETT tompkins. Dentition unchanged? Yes Difficult Airway? No. Procedure Start Time: 07/24/2021 6:36 PM. Procedure End Time: 07/24/2021 6:37 PM. Procedure Total Time: 1 minutes. Staff Section Anesthesia Provider: Chester Aguilar Anes Asst, Performed the procedure Vadim Strong MD GENERAL ANESTHESIA O RDERABLES * CT CHEST ABDOMEN PELVIS W CONT - Abdomen-pelvis trauma, blunt or penetrating (07/24/2021 4:07 PM CDT) Anatomical Region Laterality Modality Chest, Abdomen, Pelvis Computed Tomography 07/24/2021 3:28 PM CDT Impressions 07/24/2021 4:12 PM CDT Impression: 1.No acute finding within the chest, abdomen and pelvis. 2.Mild compression deformity of the superior endplate of the T9 vertebral body could represent an age-indeterminate fracture (favored to be chronic) or Schmorl's node. Chronic appearing compression deformity of the L1 vertebral body with near complete collapse causing focal kyphosis at this level. Please see dedicated CT spinal exams for further spinal evaluation. Report drafted by Becka Hawk (resident) I, Dr. VINCENT GIL have personally reviewed and interpreted this examination/study. This report was electronically signed by VINCENT GIL on 07/24/2021 4:12 PM . Narrative 07/24/2021 4:12 PM CDT Procedure Information DATE: 07/24/2021 4:10 PM EXAMINATION: Computed tomography (CT) of the chest, abdomen, and pelvis with contrast TECHNIQUE: CT of the chest, abdomen, and pelvis was performed after the uneventful administration of 100 mL of Isovue 370 intravenous contrast according to standard protocol. Clinical Information HISTORY: Trauma COMPARISON: None. Findings Chest: Lines/Tubes: None. Lower neck and axillae: Normal. Mediastinum and Destinee: No enlarged lymph nodes are present. Heart and Pericardium: The cardiac chambers are normal in size. No pericardial fluid or thickening is present. Lung Parenchyma, Airways, and Pleural Spaces: Bibasilar dependent atelectasis are seen. There is no pleural effusion or pneumothorax. Abdomen/pelvis: Hepatobiliary: There is a 9 mm cyst within the liver dome with calcification of the inferior wall. Otherwise the liver enhances homogeneously without intra or extrahepatic biliary dilatation. The gallbladder is surgically removed. Pancreas: Normal. Spleen: The spleen is normal. A surgical clip is noted within the inferior aspect of the spleen. Kidneys: A few small hypoattenuating lesions within both kidneys are too small to characterize however likely represent simple cysts. There is no hydronephrosis. 2 punctate stones are seen in the right kidney. Adrenals: Normal. Retroperitoneum: Normal. Peritoneum and gastrointestinal: The stomach has normal contour. The small and large bowel are normal caliber. Hernia mesh projects at the periumbilical region. There is tiny fatty ventral hernia several centimeters above the level of the umbilicus. There is a 2 cm lipoma in the right colon wall. There is a small hiatal hernia. Appendix: Normal. Pelvic Structures: Normal. Vasculature: Scattered atherosclerotic vasculature changes. Bones: Diffuse bone demineralization. Deformity of the right anterior fourth rib, likely chronic. Mild compression deformity of the superior endplate of T9 vertebral body could represent an age-indeterminate fracture (favored to be chronic) or Schmorl's node. Chronic appearing compression deformity of the L1 vertebral body with near complete collapse causing focal kyphosis at this level. There is thoracic spine S-shaped. Degenerative changes of bilateral shoulders are seen. Soft tissues: No acute findings. Procedure Note Vincent Gil MD - 07/24/2021 Procedure Information DATE: 07/24/2021 4:10 PM EXAMINATION: Computed tomography (CT) of the chest, abdomen, and pelvis with contrast TECHNIQUE: CT of the chest, abdomen, and pelvis was performed after the uneventful administration of 100 mL of Isovue 370 intravenous contrast according to standard protocol. Clinical Information HISTORY: Trauma COMPARISON: None. Findings Chest: Lines/Tubes: None. Lower neck and axillae: Normal. Mediastinum and Destinee: No enlarged lymph nodes are present. Heart and Pericardium: The cardiac chambers are normal in size. No pericardial fluid or thickening is present. Lung Parenchyma, Airways, and Pleural Spaces: Bibasilar dependent atelectasis are seen. There is no pleural effusion or pneumothorax. Abdomen/pelvis: Hepatobiliary: There is a 9 mm cyst within the liver dome with calcification of the inferior wall. Otherwise the liver enhances homogeneously without intraor extrahepatic biliary dilatation. The gallbladder is surgically removed. Pancreas: Normal. Spleen: The spleen is normal. A surgical clip is noted within the inferioraspect of the spleen. Kidneys: A few small hypoattenuating lesions within both kidneys are too small to characterize however likely represent simple cysts. There is no hydronephrosis. 2 punctate stones are seen in the right kidney. Adrenals: Normal. Retroperitoneum: Normal. Peritoneum and gastrointestinal: The stomach has normal contour. The small and large bowel are normal caliber. Hernia mesh projects at the periumbilical region. There is tiny fatty ventral hernia several centimeters above the level of theumbilicus. There is a 2 cm lipoma in the right colon wall. There is a small hiatal hernia. Appendix: Normal. Pelvic Structures: Normal. Vasculature: Scattered atherosclerotic vasculature changes. Bones: Diffuse bone demineralization. Deformity of the right anterior fourthrib, likely chronic. Mild compression deformity of the superior endplate ofT9 vertebral body could represent an age-indeterminate fracture (favored to be chronic) or Schmorl's node. Chronic appearing compression deformityof the L1 vertebral body with near complete collapse causing focal kyphosis at this level. There is thoracic spine S-shaped. Degenerative changes of bilateral shoulders are seen. Soft tissues: No acute findings. Impression: 1.No acute finding within the chest, abdomen and pelvis. 2.Mild compression deformity of the superior endplate of the [id number] body could represent an age-indeterminate fracture (favored to bechronic) or Schmorl's node. Chronic appearing compression deformity of the L1 vertebral body with near complete collapse causing focal kyphosis atthis level. Please see dedicated CT spinal exams for further spinalevaluation. Report drafted by Becka Hawk (resident) I, Dr. VINCENT GIL have personally reviewed and interpreted this examination/study. This report was electronically signed by VINCENT GIL on 07/24/2021 4:12 PM . Kamilla Marques MD CT ORDERABLES * CT ANGIO LOWER EXTREMITY LEFT (07/24/2021 4:07 PM CDT) Anatomical Region Laterality Modality Lower Extremity Computed Tomogra phy 07/24/2021 3:39 PM CDT Impressions 07/24/2021 4:21 PM CDT Impression: 1.Comminuted periprosthetic fracture of the distal femur. No evidence of active hemorrhage. 2.No evidence of main vessel arterial injury. Report drafted by Becka Hawk (resident) I, Dr. VINCENT GIL have personally reviewed and interpreted this examination/study. This report was electronically signed by VINCENT GIL on 07/24/2021 4:21 PM . Narrative 07/24/2021 4:21 PM CDT Procedure Information DATE: 07/24/2021 2:48 PM EXAMINATION: Computed tomography (CT) angiogram of the left lower extremity with contrast TECHNIQUE: CT angiography of the left lower extremity was performed following the uneventful administration of according to angiographic protocol. Multiplanar reconstructions and postprocessed 3-D images were produced. Clinical Information HISTORY: W19.XXXA: Fall, initial encounter COMPARISON: Femur x-ray dated 07/24/2021. Findings Bones/soft tissue: Postoperative appearance of total knee arthroplasty is seen. There is severely comminuted, displaced, apex posteriorly fracture of the distal femur above and abutting the prosthesis. Adjacent soft tissue laceration within the medial aspect of the thigh with presence of soft tissue emphysema is suggestive of open fracture or surgical exploration. Surgical sponge is noted within the lateral aspect of the distal thigh. A small volume of hemorrhagic material is noted. No evidence of active hemorrhage. No major arterial injury. Internal fixation of the distal fibula with prior lateral plate and multiple screws are seen. Vessels: Left common femoral artery: Atherosclerotic but patent without significant focal stenosis. Left profunda femoris artery: Patent without significant focal stenosis. Left superficial femoral artery: Patent without significant focal stenosis. Left popliteal artery: Patent without significant focal stenosis. Left anterior tibial artery: Patent without significant focal stenosis. This vessel crosses the ankle and supplies the dorsalis pedis artery. Left tibioperoneal trunk: Patent without significant focal stenosis. Left posterior tibial artery: Not identified arising off the tibioperoneal trunk, and could be either hypoplastic/congenitally absent or chronically occluded. Small branch vessels variably course into the area from a large peroneal artery. The peroneal artery also branches at the ankle, with a portion supplying the plantar artery. Left peroneal artery: Patent without significant focal stenosis. Procedure Note Vincent Gil MD - 07/24/2021 Procedure Information DATE: 07/24/2021 2:48 PM EXAMINATION: Computed tomography (CT) angiogram of the left lower extremity with contrast TECHNIQUE: CT angiography of the left lower extremity was performed following the uneventful administration of according to angiographic protocol. Multiplanar reconstructions and postprocessed 3-D images were produced. Clinical Information HISTORY: W19.XXXA: Fall, initial encounter COMPARISON: Femur x-ray dated 07/24/2021. Findings Bones/soft tissue: Postoperative appearance of total knee arthroplasty is seen. There is severely comminuted, displaced, apex posteriorly fracture of the distal femur above and abutting the prosthesis. Adjacent soft tissue laceration within the medial aspect of the thigh with presence of soft tissue emphysema is suggestive of open fracture or surgical exploration.Surgical sponge is noted within the lateral aspect of the distal thigh. A small volume of hemorrhagic material is noted. No evidence of activehemorrhage. No major arterial injury. Internal fixation of the distal fibula with prior lateral plate and multiple screws are seen. Vessels: Left common femoral artery: Atherosclerotic but patent withoutsignificant focal stenosis. Left profunda femoris artery: Patent without significant focal stenosis. Left superficial femoral artery: Patent without significant focalstenosis. Left popliteal artery: Patent without significant focal stenosis. Left anterior tibial artery: Patent without significant focal stenosis. This vessel crosses the ankle and supplies the dorsalis pedis artery. Left tibioperoneal trunk: Patent without significant focal stenosis. Left posterior tibial artery: Not identified arising off thetibioperoneal trunk, and could be either hypoplastic/congenitally absent orchronically occluded. Small branch vessels variably course into the area from alarge peroneal artery. The peroneal artery also branches at the ankle, with a portion supplying the plantar artery. Left peroneal artery: Patent without significant focal stenosis. Impression: 1.Comminuted periprosthetic fracture of the distal femur. No evidence of active hemorrhage. 2.No evidence of main vessel arterial injury. Report drafted by Becka Hawk (resident) I, Dr. VINCENT GIL have personally reviewed and interpreted this examination/study. This report was electronically signed by VINCENT GIL on 07/24/2021 4:21 PM . Kamilla Marques MD CT ORDERABLES * CT LUMBAR SPINE WO CONTRAST - T/L-spine trauma, Spine fracture (07/24/2021 4:07 PM CDT) Anatomical Region Laterality Modality Spine Computed Tomogra phy 07/24/2021 4:02 PM CDT Impressions 07/25/2021 8:06 AM CDT IMPRESSION: 1.No acute intracranial process. 2.No acute facial bone fractures identified. 3.No evidence of acute fracture in the cervical, thoracic, or lumbar spine given osteopenia. 4.Chronic vertebral plana deformity of L1. Dictated by Curt Ko DO (doctor of radiology) I, Dr. GABBIE MEREDITH have personally reviewed and interpreted this examination/study. This report was electronically signed by GABBIE MEREDITH on 07/25/2021 8:06 AM . Narrative 07/25/2021 8:[address] HEAD WO CONTRAST, CT FACIAL BONES WO CONTRAST, CT LUMBAR SPINE WO CONTRAST, CT THORACIC SPINE WO CONTRAST, CT CERVICAL SPINE WO CONTRAST DATE: 07/24/2021 4:10 PM EXAMINATION: 1. Computed tomography (CT) of the head without contrast 2. CT of the maxillofacial bones, orbits, and paranasal sinuses without contrast 3. CT of the cervical spine without contrast 4. CT of the thoracic spine without contrast 5. CT of the lumbar spine without contrast HISTORY: Trauma TECHNIQUE: CT of the head, cervical spine, and maxillofacial bones, orbits, and paranasal sinuses was performed without contrast according to standard protocol. Reformatted axial, sagittal, and coronal images of the thoracic and lumbar spine were obtained by the technologist from a concurrently performed body CT and sent to the workstation for review. COMPARISON: No prior study is available for comparison at the time of this dictation. FINDINGS: Head: No acute intra- or extra-axial fluid collections are identified. There is moderate cerebral volume loss with associated ex vacuo ventricular dilatation. The basilar cisterns are patent. No mass effect or midline shift is seen. The heaton-white matter differentiation is normal. Mild periventricular white matter hypoattenuation is indicative of chronic small vessel ischemic disease. There is mild vascular calcification of the carotid siphons. No acute calvarial fracture is identified. Maxillofacial: The orbits appear normal. There is moderate paranasal sinus disease. Other than mild osteoarthritis of the temporomandibular joints, the hard palate, mandible, and temporomandibular joints appear unremarkable. No acute facial bone fractures are identified. The mastoid air cells are clear. No soft tissue abnormality is identified. Cervical spine: The bones are demineralized. Levocurvature from C4 through C7 measures 22 degrees. Vertebral bodies are normal in height without evidence of acute fracture. Other than middle atlantoaxial joint osteoarthritis, the craniocervical junction appears normal. There is mild degenerative disc disease. No central canal stenosis is seen. The facets appear normal. There are varying degrees of mild uncovertebral joint osteoarthritis. No neural foraminal stenosis is seen. There is atherosclerotic calcification of the carotid bifurcations. Thoracic spine: The bones are demineralized. Levoscoliosis from T3 through T7 measures 17 degrees. No acute fractures. There is mild degenerative disc disease. Schmorl's node is noted at the superior T9 incomplete. Mild chronic-appearing anterior wedging of T11 and T12 is noted. No central canal stenosis is seen. The facets appear normal. No neural foraminal stenosis is seen. No soft tissue abnormality is identified. Lumbar spine: The bones are demineralized. There is no scoliosis. Retrolisthesis at L1-L2 measures 4 mm. Chronic vertebra plana of L1 is noted. No acute fractures. There is mild degenerative disc disease. Multilevel mild central canal stenosis. There is mild to moderate multilevel facet arthropathy, more pronounced on the left and in the lower lumbar spine. Mild to moderate bilateral foraminal narrowing is present throughout the lumbar spine, most prominent at L3-L4 and L4-L5. There is atherosclerotic calcification of the abdominal aorta and its branch vessels. Procedure Note Gabbie Meredith MD - 07/25/2021 CT HEAD WO CONTRAST, CT FACIAL BONES WO CONTRAST, CT LUMBAR SPINE WO CONTRAST, CT THORACIC SPINE WO CONTRAST, CT CERVICAL SPINE WO CONTRAST DATE: 07/24/2021 4:10 PM EXAMINATION: 1. Computed tomography (CT) of the head without contrast 2. CT of the maxillofacial bones, orbits, and paranasal sinuses without contrast 3. CT of the cervical spine without contrast 4. CT of the thoracic spine without contrast 5. CT of the lumbar spine without contrast HISTORY: Trauma TECHNIQUE: CT of the head, cervical spine, and maxillofacial bones, orbits, and paranasal sinuses was performed without contrast accordingto standard protocol. Reformatted axial, sagittal, and coronal images ofthe thoracic and lumbar spine were obtained by the technologist from a concurrently performed body CT and sent to the workstation for review. COMPARISON: No prior study is available for comparison at the time ofthis dictation. FINDINGS: Head: No acute intra- or extra-axial fluid collections are identified. Thereis moderate cerebral volume loss with associated ex vacuo ventricular dilatation. The basilar cisterns are patent. No mass effect or midline shift is seen. The heaton-white matter differentiation is normal. Mild periventricular white matter hypoattenuation is indicative of chronic small vessel ischemic disease. There is mild vascular calcification ofthe carotid siphons. No acute calvarial fracture is identified. Maxillofacial: The orbits appear normal. There is moderate paranasal sinus disease.Other than mild osteoarthritis of the temporomandibular joints, the hardpalate, mandible, and temporomandibular joints appear unremarkable. No acute facial bone fractures are identified. The mastoid air cells are clear.No soft tissue abnormality is identified. Cervical spine: The bones are demineralized. Levocurvature from C4 through C7 measures 22 degrees. Vertebral bodiesare normal in height without evidence of acute fracture. Other than middle atlantoaxial joint osteoarthritis, the craniocervical junction appears normal. There is mild degenerative disc disease. No central canalstenosis is seen. The facets appear normal. There are varying degrees of mild uncovertebral joint osteoarthritis. No neural foraminal stenosis isseen. There is atherosclerotic calcification of the carotid bifurcations. Thoracic spine: The bones are demineralized. Levoscoliosis from T3 through T7 measures 17 degrees. No acutefractures. There is mild degenerative disc disease. Schmorl's node is noted at the superior T9 incomplete. Mild chronic-appearing anterior wedging of T11and T12 is noted. No central canal stenosis is seen. The facets appear normal. No neural foraminal stenosis is seen. No soft tissueabnormality is identified. Lumbar spine: The bones are demineralized. There is no scoliosis. Retrolisthesis at L1-L2 measures 4 mm. Chronic vertebra plana of L1 is noted. No acute fractures. There is mild degenerative disc disease. Multilevel mild central canal stenosis. There is mild to moderate multilevel facet arthropathy, more pronounced on the left and in the lower lumbar spine. Mild to moderate bilateral foraminal narrowing is present throughout the lumbar spine, most prominent atL3-L4 and L4-L5. There is atherosclerotic calcification of the abdominalaorta and its branch vessels. IMPRESSION: 1.No acute intracranial process. 2.No acute facial bone fractures identified. 3.No evidence of acute fracture in the cervical, thoracic, or lumbarspine given osteopenia. 4.Chronic vertebral plana deformity of L1. Dictated by Curt Ko DO (doctor of radiology) IDr. GABBIE have personally reviewed and interpreted this examination/study. This report was electronically signed by GABBIE MEREDITH on07/25/2021 8:06 AM . Kamilla Marques MD CT ORDERABLES * CT THORACIC SPINE WO CONTRAST - T/L-spine trauma, spine fracture (07/24/2021 4:07 PM CDT) Anatomical Region Laterality Modality Spine Computed Tomogra phy 07/24/2021 4:02 PM CDT Impressions 07/25/2021 8:06 AM CDT IMPRESSION: 1.No acute intracranial process. 2.No acute facial bone fractures identified. 3.No evidence of acute fracture in the cervical, thoracic, or lumbar spine given osteopenia. 4.Chronic vertebral plana deformity of L1. Dictated by Curt Ko DO (doctor of radiology) I, Dr. GABBIE MEREDITH have personally reviewed and interpreted this examination/study. This report was electronically signed by GABBIE MEREDITH on 07/25/2021 8:06 AM . Narrative 07/25/2021 8:[address] HEAD WO CONTRAST, CT FACIAL BONES WO CONTRAST, CT LUMBAR SPINE WO CONTRAST, CT THORACIC SPINE WO CONTRAST, CT CERVICAL SPINE WO CONTRAST DATE: 07/24/2021 4:10 PM EXAMINATION: 1. Computed tomography (CT) of the head without contrast 2. CT of the maxillofacial bones, orbits, and paranasal sinuses without contrast 3. CT of the cervical spine without contrast 4. CT of the thoracic spine without contrast 5. CT of the lumbar spine without contrast HISTORY: Trauma TECHNIQUE: CT of the head, cervical spine, and maxillofacial bones, orbits, and paranasal sinuses was performed without contrast according to standard protocol. Reformatted axial, sagittal, and coronal images of the thoracic and lumbar spine were obtained by the technologist from a concurrently performed body CT and sent to the workstation for review. COMPARISON: No prior study is available for comparison at the time of this dictation. FINDINGS: Head: No acute intra- or extra-axial fluid collections are identified. There is moderate cerebral volume loss with associated ex vacuo ventricular dilatation. The basilar cisterns are patent. No mass effect or midline shift is seen. The heaton-white matter differentiation is normal. Mild periventricular white matter hypoattenuation is indicative of chronic small vessel ischemic disease. There is mild vascular calcification of the carotid siphons. No acute calvarial fracture is identified. Maxillofacial: The orbits appear normal. There is moderate paranasal sinus disease. Other than mild osteoarthritis of the temporomandibular joints, the hard palate, mandible, and temporomandibular joints appear unremarkable. No acute facial bone fractures are identified. The mastoid air cells are clear. No soft tissue abnormality is identified. Cervical spine: The bones are demineralized. Levocurvature from C4 through C7 measures 22 degrees. Vertebral bodies are normal in height without evidence of acute fracture. Other than middle atlantoaxial joint osteoarthritis, the craniocervical junction appears normal. There is mild degenerative disc disease. No central canal stenosis is seen. The facets appear normal. There are varying degrees of mild uncovertebral joint osteoarthritis. No neural foraminal stenosis is seen. There is atherosclerotic calcification of the carotid bifurcations. Thoracic spine: The bones are demineralized. Levoscoliosis from T3 through T7 measures 17 degrees. No acute fractures. There is mild degenerative disc disease. Schmorl's node is noted at the superior T9 incomplete. Mild chronic-appearing anterior wedging of T11 and T12 is noted. No central canal stenosis is seen. The facets appear normal. No neural foraminal stenosis is seen. No soft tissue abnormality is identified. Lumbar spine: The bones are demineralized. There is no scoliosis. Retrolisthesis at L1-L2 measures 4 mm. Chronic vertebra plana of L1 is noted. No acute fractures. There is mild degenerative disc disease. Multilevel mild central canal stenosis. There is mild to moderate multilevel facet arthropathy, more pronounced on the left and in the lower lumbar spine. Mild to moderate bilateral foraminal narrowing is present throughout the lumbar spine, most prominent at L3-L4 and L4-L5. There is atherosclerotic calcification of the abdominal aorta and its branch vessels. Procedure Note Gabbie Meredith MD - 07/25/2021 CT HEAD WO CONTRAST, CT FACIAL BONES WO CONTRAST, CT LUMBAR SPINE WO CONTRAST, CT THORACIC SPINE WO CONTRAST, CT CERVICAL SPINE WO CONTRAST DATE: 07/24/2021 4:10 PM EXAMINATION: 1. Computed tomography (CT) of the head without contrast 2. CT of the maxillofacial bones, orbits, and paranasal sinuses without contrast 3. CT of the cervical spine without contrast 4. CT of the thoracic spine without contrast 5. CT of the lumbar spine without contrast HISTORY: Trauma TECHNIQUE: CT of the head, cervical spine, and maxillofacial bones, orbits, and paranasal sinuses was performed without contrast accordingto standard protocol. Reformatted axial, sagittal, and coronal images ofthe thoracic and lumbar spine were obtained by the technologist from a concurrently performed body CT and sent to the workstation for review. COMPARISON: No prior study is available for comparison at the time ofthis dictation. FINDINGS: Head: No acute intra- or extra-axial fluid collections are identified. Thereis moderate cerebral volume loss with associated ex vacuo ventricular dilatation. The basilar cisterns are patent. No mass effect or midline shift is seen. The heaton-white matter differentiation is normal. Mild periventricular white matter hypoattenuation is indicative of chronic small vessel ischemic disease. There is mild vascular calcification ofthe carotid siphons. No acute calvarial fracture is identified. Maxillofacial: The orbits appear normal. There is moderate paranasal sinus disease.Other than mild osteoarthritis of the temporomandibular joints, the hardpalate, mandible, and temporomandibular joints appear unremarkable. No acute facial bone fractures are identified. The mastoid air cells are clear.No soft tissue abnormality is identified. Cervical spine: The bones are demineralized. Levocurvature from C4 through C7 measures 22 degrees. Vertebral bodiesare normal in height without evidence of acute fracture. Other than middle atlantoaxial joint osteoarthritis, the craniocervical junction appears normal. There is mild degenerative disc disease. No central canalstenosis is seen. The facets appear normal. There are varying degrees of mild uncovertebral joint osteoarthritis. No neural foraminal stenosis isseen. There is atherosclerotic calcification of the carotid bifurcations. Thoracic spine: The bones are demineralized. Levoscoliosis from T3 through T7 measures 17 degrees. No acutefractures. There is mild degenerative disc disease. Schmorl's node is noted at the superior T9 incomplete. Mild chronic-appearing anterior wedging of T11and T12 is noted. No central canal stenosis is seen. The facets appear normal. No neural foraminal stenosis is seen. No soft tissueabnormality is identified. Lumbar spine: The bones are demineralized. There is no scoliosis. Retrolisthesis at L1-L2 measures 4 mm. Chronic vertebra plana of L1 is noted. No acute fractures. There is mild degenerative disc disease. Multilevel mild central canal stenosis. There is mild to moderate multilevel facet arthropathy, more pronounced on the left and in the lower lumbar spine. Mild to moderate bilateral foraminal narrowing is present throughout the lumbar spine, most prominent atL3-L4 and L4-L5. There is atherosclerotic calcification of the abdominalaorta and its branch vessels. IMPRESSION: 1.No acute intracranial process. 2.No acute facial bone fractures identified. 3.No evidence of acute fracture in the cervical, thoracic, or lumbarspine given osteopenia. 4.Chronic vertebral plana deformity of L1. Dictated by Curt Ko DO (doctor of radiology) Dr. GABBIE Mares have personally reviewed and interpreted this examination/study. This report was electronically signed by GABBIE MEREDITH on07/25/2021 8:06 AM . Kamilla Marques MD CT ORDERABLES * CT CERVICAL SPINE WO CONTRAST - C-Spine Trauma, Spine fracture (07/24/2021 4:07 PM CDT) Anatomical Region Laterality Modality Spine Computed Tomogra phy 07/24/2021 4:02 PM CDT Impressions 07/25/2021 8:06 AM CDT IMPRESSION: 1.No acute intracranial process. 2.No acute facial bone fractures identified. 3.No evidence of acute fracture in the cervical, thoracic, or lumbar spine given osteopenia. 4.Chronic vertebral plana deformity of L1. Dictated by Curt Ko DO (doctor of radiology) Dr. GABBIE Mares have personally reviewed and interpreted this examination/study. This report was electronically signed by GABBIE MEREDITH on 07/25/2021 8:06 AM . Narrative 07/25/2021 8:[address] HEAD WO CONTRAST, CT FACIAL BONES WO CONTRAST, CT LUMBAR SPINE WO CONTRAST, CT THORACIC SPINE WO CONTRAST, CT CERVICAL SPINE WO CONTRAST DATE: 07/24/2021 4:10 PM EXAMINATION: 1. Computed tomography (CT) of the head without contrast 2. CT of the maxillofacial bones, orbits, and paranasal sinuses without contrast 3. CT of the cervical spine without contrast 4. CT of the thoracic spine without contrast 5. CT of the lumbar spine without contrast HISTORY: Trauma TECHNIQUE: CT of the head, cervical spine, and maxillofacial bones, orbits, and paranasal sinuses was performed without contrast according to standard protocol. Reformatted axial, sagittal, and coronal images of the thoracic and lumbar spine were obtained by the technologist from a concurrently performed body CT and sent to the workstation for review. COMPARISON: No prior study is available for comparison at the time of this dictation. FINDINGS: Head: No acute intra- or extra-axial fluid collections are identified. There is moderate cerebral volume loss with associated ex vacuo ventricular dilatation. The basilar cisterns are patent. No mass effect or midline shift is seen. The heaton-white matter differentiation is normal. Mild periventricular white matter hypoattenuation is indicative of chronic small vessel ischemic disease. There is mild vascular calcification of the carotid siphons. No acute calvarial fracture is identified. Maxillofacial: The orbits appear normal. There is moderate paranasal sinus disease. Other than mild osteoarthritis of the temporomandibular joints, the hard palate, mandible, and temporomandibular joints appear unremarkable. No acute facial bone fractures are identified. The mastoid air cells are clear. No soft tissue abnormality is identified. Cervical spine: The bones are demineralized. Levocurvature from C4 through C7 measures 22 degrees. Vertebral bodies are normal in height without evidence of acute fracture. Other than middle atlantoaxial joint osteoarthritis, the craniocervical junction appears normal. There is mild degenerative disc disease. No central canal stenosis is seen. The facets appear normal. There are varying degrees of mild uncovertebral joint osteoarthritis. No neural foraminal stenosis is seen. There is atherosclerotic calcification of the carotid bifurcations. Thoracic spine: The bones are demineralized. Levoscoliosis from T3 through T7 measures 17 degrees. No acute fractures. There is mild degenerative disc disease. Schmorl's node is noted at the superior T9 incomplete. Mild chronic-appearing anterior wedging of T11 and T12 is noted. No central canal stenosis is seen. The facets appear normal. No neural foraminal stenosis is seen. No soft tissue abnormality is identified. Lumbar spine: The bones are demineralized. There is no scoliosis. Retrolisthesis at L1-L2 measures 4 mm. Chronic vertebra plana of L1 is noted. No acute fractures. There is mild degenerative disc disease. Multilevel mild central canal stenosis. There is mild to moderate multilevel facet arthropathy, more pronounced on the left and in the lower lumbar spine. Mild to moderate bilateral foraminal narrowing is present throughout the lumbar spine, most prominent at L3-L4 and L4-L5. There is atherosclerotic calcification of the abdominal aorta and its branch vessels. Procedure Note Gabbie Meredith MD - 07/25/2021 CT HEAD WO CONTRAST, CT FACIAL BONES WO CONTRAST, CT LUMBAR SPINE WO CONTRAST, CT THORACIC SPINE WO CONTRAST, CT CERVICAL SPINE WO CONTRAST DATE: 07/24/2021 4:10 PM EXAMINATION: 1. Computed tomography (CT) of the head without contrast 2. CT of the maxillofacial bones, orbits, and paranasal sinuses without contrast 3. CT of the cervical spine without contrast 4. CT of the thoracic spine without contrast 5. CT of the lumbar spine without contrast HISTORY: Trauma TECHNIQUE: CT of the head, cervical spine, and maxillofacial bones, orbits, and paranasal sinuses was performed without contrast accordingto standard protocol. Reformatted axial, sagittal, and coronal images ofthe thoracic and lumbar spine were obtained by the technologist from a concurrently performed body CT and sent to the workstation for review. COMPARISON: No prior study is available for comparison at the time ofthis dictation. FINDINGS: Head: No acute intra- or extra-axial fluid collections are identified. Thereis moderate cerebral volume loss with associated ex vacuo ventricular dilatation. The basilar cisterns are patent. No mass effect or midline shift is seen. The heaton-white matter differentiation is normal. Mild periventricular white matter hypoattenuation is indicative of chronic small vessel ischemic disease. There is mild vascular calcification ofthe carotid siphons. No acute calvarial fracture is identified. Maxillofacial: The orbits appear normal. There is moderate paranasal sinus disease.Other than mild osteoarthritis of the temporomandibular joints, the hardpalate, mandible, and temporomandibular joints appear unremarkable. No acute facial bone fractures are identified. The mastoid air cells are clear.No soft tissue abnormality is identified. Cervical spine: The bones are demineralized. Levocurvature from C4 through C7 measures 22 degrees. Vertebral bodiesare normal in height without evidence of acute fracture. Other than middle atlantoaxial joint osteoarthritis, the craniocervical junction appears normal. There is mild degenerative disc disease. No central canalstenosis is seen. The facets appear normal. There are varying degrees of mild uncovertebral joint osteoarthritis. No neural foraminal stenosis isseen. There is atherosclerotic calcification of the carotid bifurcations. Thoracic spine: The bones are demineralized. Levoscoliosis from T3 through T7 measures 17 degrees. No acutefractures. There is mild degenerative disc disease. Schmorl's node is noted at the superior T9 incomplete. Mild chronic-appearing anterior wedging of T11and T12 is noted. No central canal stenosis is seen. The facets appear normal. No neural foraminal stenosis is seen. No soft tissueabnormality is identified. Lumbar spine: The bones are demineralized. There is no scoliosis. Retrolisthesis at L1-L2 measures 4 mm. Chronic vertebra plana of L1 is noted. No acute fractures. There is mild degenerative disc disease. Multilevel mild central canal stenosis. There is mild to moderate multilevel facet arthropathy, more pronounced on the left and in the lower lumbar spine. Mild to moderate bilateral foraminal narrowing is present throughout the lumbar spine, most prominent atL3-L4 and L4-L5. There is atherosclerotic calcification of the abdominalaorta and its branch vessels. IMPRESSION: 1.No acute intracranial process. 2.No acute facial bone fractures identified. 3.No evidence of acute fracture in the cervical, thoracic, or lumbarspine given osteopenia. 4.Chronic vertebral plana deformity of L1. Dictated by Curt Ko DO (doctor of radiology) Dr. GABBIE Mares have personally reviewed and interpreted this examination/study. This report was electronically signed by GABBIE MEREDITH on07/25/2021 8:06 AM . Kamilla Marques MD CT ORDERABLES * CT FACIAL BONES WO CONTRAST - Facial trauma, fx suspected, blunt (07/24/2021 4:07 PM CDT) Anatomical Region Laterality Modality Head Computed Tomogra phy 07/24/2021 4:02 PM CDT Impressions 07/25/2021 8:06 AM CDT IMPRESSION: 1.No acute intracranial process. 2.No acute facial bone fractures identified. 3.No evidence of acute fracture in the cervical, thoracic, or lumbar spine given osteopenia. 4.Chronic vertebral plana deformity of L1. Dictated by Curt Ko DO (doctor of radiology) Dr. GABBIE Mares have personally reviewed and interpreted this examination/study. This report was electronically signed by GABBIE MEREDITH on 07/25/2021 8:06 AM . Narrative 07/25/2021 8:[address] HEAD WO CONTRAST, CT FACIAL BONES WO CONTRAST, CT LUMBAR SPINE WO CONTRAST, CT THORACIC SPINE WO CONTRAST, CT CERVICAL SPINE WO CONTRAST DATE: 07/24/2021 4:10 PM EXAMINATION: 1. Computed tomography (CT) of the head without contrast 2. CT of the maxillofacial bones, orbits, and paranasal sinuses without contrast 3. CT of the cervical spine without contrast 4. CT of the thoracic spine without contrast 5. CT of the lumbar spine without contrast HISTORY: Trauma TECHNIQUE: CT of the head, cervical spine, and maxillofacial bones, orbits, and paranasal sinuses was performed without contrast according to standard protocol. Reformatted axial, sagittal, and coronal images of the thoracic and lumbar spine were obtained by the technologist from a concurrently performed body CT and sent to the workstation for review. COMPARISON: No prior study is available for comparison at the time of this dictation. FINDINGS: Head: No acute intra- or extra-axial fluid collections are identified. There is moderate cerebral volume loss with associated ex vacuo ventricular dilatation. The basilar cisterns are patent. No mass effect or midline shift is seen. The heaton-white matter differentiation is normal. Mild periventricular white matter hypoattenuation is indicative of chronic small vessel ischemic disease. There is mild vascular calcification of the carotid siphons. No acute calvarial fracture is identified. Maxillofacial: The orbits appear normal. There is moderate paranasal sinus disease. Other than mild osteoarthritis of the temporomandibular joints, the hard palate, mandible, and temporomandibular joints appear unremarkable. No acute facial bone fractures are identified. The mastoid air cells are clear. No soft tissue abnormality is identified. Cervical spine: The bones are demineralized. Levocurvature from C4 through C7 measures 22 degrees. Vertebral bodies are normal in height without evidence of acute fracture. Other than middle atlantoaxial joint osteoarthritis, the craniocervical junction appears normal. There is mild degenerative disc disease. No central canal stenosis is seen. The facets appear normal. There are varying degrees of mild uncovertebral joint osteoarthritis. No neural foraminal stenosis is seen. There is atherosclerotic calcification of the carotid bifurcations. Thoracic spine: The bones are demineralized. Levoscoliosis from T3 through T7 measures 17 degrees. No acute fractures. There is mild degenerative disc disease. Schmorl's node is noted at the superior T9 incomplete. Mild chronic-appearing anterior wedging of T11 and T12 is noted. No central canal stenosis is seen. The facets appear normal. No neural foraminal stenosis is seen. No soft tissue abnormality is identified. Lumbar spine: The bones are demineralized. There is no scoliosis. Retrolisthesis at L1-L2 measures 4 mm. Chronic vertebra plana of L1 is noted. No acute fractures. There is mild degenerative disc disease. Multilevel mild central canal stenosis. There is mild to moderate multilevel facet arthropathy, more pronounced on the left and in the lower lumbar spine. Mild to moderate bilateral foraminal narrowing is present throughout the lumbar spine, most prominent at L3-L4 and L4-L5. There is atherosclerotic calcification of the abdominal aorta and its branch vessels. Procedure Note Gabbie Meredith MD - 07/25/2021 CT HEAD WO CONTRAST, CT FACIAL BONES WO CONTRAST, CT LUMBAR SPINE WO CONTRAST, CT THORACIC SPINE WO CONTRAST, CT CERVICAL SPINE WO CONTRAST DATE: 07/24/2021 4:10 PM EXAMINATION: 1. Computed tomography (CT) of the head without contrast 2. CT of the maxillofacial bones, orbits, and paranasal sinuses without contrast 3. CT of the cervical spine without contrast 4. CT of the thoracic spine without contrast 5. CT of the lumbar spine without contrast HISTORY: Trauma TECHNIQUE: CT of the head, cervical spine, and maxillofacial bones, orbits, and paranasal sinuses was performed without contrast accordingto standard protocol. Reformatted axial, sagittal, and coronal images ofthe thoracic and lumbar spine were obtained by the technologist from a concurrently performed body CT and sent to the workstation for review. COMPARISON: No prior study is available for comparison at the time ofthis dictation. FINDINGS: Head: No acute intra- or extra-axial fluid collections are identified. Thereis moderate cerebral volume loss with associated ex vacuo ventricular dilatation. The basilar cisterns are patent. No mass effect or midline shift is seen. The heaton-white matter differentiation is normal. Mild periventricular white matter hypoattenuation is indicative of chronic small vessel ischemic disease. There is mild vascular calcification ofthe carotid siphons. No acute calvarial fracture is identified. Maxillofacial: The orbits appear normal. There is moderate paranasal sinus disease.Other than mild osteoarthritis of the temporomandibular joints, the hardpalate, mandible, and temporomandibular joints appear unremarkable. No acute facial bone fractures are identified. The mastoid air cells are clear.No soft tissue abnormality is identified. Cervical spine: The bones are demineralized. Levocurvature from C4 through C7 measures 22 degrees. Vertebral bodiesare normal in height without evidence of acute fracture. Other than middle atlantoaxial joint osteoarthritis, the craniocervical junction appears normal. There is mild degenerative disc disease. No central canalstenosis is seen. The facets appear normal. There are varying degrees of mild uncovertebral joint osteoarthritis. No neural foraminal stenosis isseen. There is atherosclerotic calcification of the carotid bifurcations. Thoracic spine: The bones are demineralized. Levoscoliosis from T3 through T7 measures 17 degrees. No acutefractures. There is mild degenerative disc disease. Schmorl's node is noted at the superior T9 incomplete. Mild chronic-appearing anterior wedging of T11and T12 is noted. No central canal stenosis is seen. The facets appear normal. No neural foraminal stenosis is seen. No soft tissueabnormality is identified. Lumbar spine: The bones are demineralized. There is no scoliosis. Retrolisthesis at L1-L2 measures 4 mm. Chronic vertebra plana of L1 is noted. No acute fractures. There is mild degenerative disc disease. Multilevel mild central canal stenosis. There is mild to moderate multilevel facet arthropathy, more pronounced on the left and in the lower lumbar spine. Mild to moderate bilateral foraminal narrowing is present throughout the lumbar spine, most prominent atL3-L4 and L4-L5. There is atherosclerotic calcification of the abdominalaorta and its branch vessels. IMPRESSION: 1.No acute intracranial process. 2.No acute facial bone fractures identified. 3.No evidence of acute fracture in the cervical, thoracic, or lumbarspine given osteopenia. 4.Chronic vertebral plana deformity of L1. Dictated by Curt Ko DO (doctor of radiology) I, Dr. GABBIE MEREDITH have personally reviewed and interpreted this examination/study. This report was electronically signed by GABBIE MEREDITH on07/25/2021 8:06 AM . Kamilla Marques MD CT ORDERABLES * CT HEAD WO CONTRAST - Head Trauma, CSF leak, mental status changes (07/24/2021 4:07 PM CDT) Anatomical Region Laterality Modality Head Computed Tomogra phy 07/24/2021 4:02 PM CDT Impressions 07/25/2021 8:06 AM CDT IMPRESSION: 1.No acute intracranial process. 2.No acute facial bone fractures identified. 3.No evidence of acute fracture in the cervical, thoracic, or lumbar spine given osteopenia. 4.Chronic vertebral plana deformity of L1. Dictated by Curt Ko DO (doctor of radiology) I, Dr. GABBIE MEREDITH have personally reviewed and interpreted this examination/study. This report was electronically signed by GABBIE MEREDITH on 07/25/2021 8:06 AM . Narrative 07/25/2021 8:[address] HEAD WO CONTRAST, CT FACIAL BONES WO CONTRAST, CT LUMBAR SPINE WO CONTRAST, CT THORACIC SPINE WO CONTRAST, CT CERVICAL SPINE WO CONTRAST DATE: 07/24/2021 4:10 PM EXAMINATION: 1. Computed tomography (CT) of the head without contrast 2. CT of the maxillofacial bones, orbits, and paranasal sinuses without contrast 3. CT of the cervical spine without contrast 4. CT of the thoracic spine without contrast 5. CT of the lumbar spine without contrast HISTORY: Trauma TECHNIQUE: CT of the head, cervical spine, and maxillofacial bones, orbits, and paranasal sinuses was performed without contrast according to standard protocol. Reformatted axial, sagittal, and coronal images of the thoracic and lumbar spine were obtained by the technologist from a concurrently performed body CT and sent to the workstation for review. COMPARISON: No prior study is available for comparison at the time of this dictation. FINDINGS: Head: No acute intra- or extra-axial fluid collections are identified. There is moderate cerebral volume loss with associated ex vacuo ventricular dilatation. The basilar cisterns are patent. No mass effect or midline shift is seen. The heaton-white matter differentiation is normal. Mild periventricular white matter hypoattenuation is indicative of chronic small vessel ischemic disease. There is mild vascular calcification of the carotid siphons. No acute calvarial fracture is identified. Maxillofacial: The orbits appear normal. There is moderate paranasal sinus disease. Other than mild osteoarthritis of the temporomandibular joints, the hard palate, mandible, and temporomandibular joints appear unremarkable. No acute facial bone fractures are identified. The mastoid air cells are clear. No soft tissue abnormality is identified. Cervical spine: The bones are demineralized. Levocurvature from C4 through C7 measures 22 degrees. Vertebral bodies are normal in height without evidence of acute fracture. Other than middle atlantoaxial joint osteoarthritis, the craniocervical junction appears normal. There is mild degenerative disc disease. No central canal stenosis is seen. The facets appear normal. There are varying degrees of mild uncovertebral joint osteoarthritis. No neural foraminal stenosis is seen. There is atherosclerotic calcification of the carotid bifurcations. Thoracic spine: The bones are demineralized. Levoscoliosis from T3 through T7 measures 17 degrees. No acute fractures. There is mild degenerative disc disease. Schmorl's node is noted at the superior T9 incomplete. Mild chronic-appearing anterior wedging of T11 and T12 is noted. No central canal stenosis is seen. The facets appear normal. No neural foraminal stenosis is seen. No soft tissue abnormality is identified. Lumbar spine: The bones are demineralized. There is no scoliosis. Retrolisthesis at L1-L2 measures 4 mm. Chronic vertebra plana of L1 is noted. No acute fractures. There is mild degenerative disc disease. Multilevel mild central canal stenosis. There is mild to moderate multilevel facet arthropathy, more pronounced on the left and in the lower lumbar spine. Mild to moderate bilateral foraminal narrowing is present throughout the lumbar spine, most prominent at L3-L4 and L4-L5. There is atherosclerotic calcification of the abdominal aorta and its branch vessels. Procedure Note Gabbie Meredith MD - 07/25/2021 CT HEAD WO CONTRAST, CT FACIAL BONES WO CONTRAST, CT LUMBAR SPINE WO CONTRAST, CT THORACIC SPINE WO CONTRAST, CT CERVICAL SPINE WO CONTRAST DATE: 07/24/2021 4:10 PM EXAMINATION: 1. Computed tomography (CT) of the head without contrast 2. CT of the maxillofacial bones, orbits, and paranasal sinuses without contrast 3. CT of the cervical spine without contrast 4. CT of the thoracic spine without contrast 5. CT of the lumbar spine without contrast HISTORY: Trauma TECHNIQUE: CT of the head, cervical spine, and maxillofacial bones, orbits, and paranasal sinuses was performed without contrast accordingto standard protocol. Reformatted axial, sagittal, and coronal images ofthe thoracic and lumbar spine were obtained by the technologist from a concurrently performed body CT and sent to the workstation for review. COMPARISON: No prior study is available for comparison at the time ofthis dictation. FINDINGS: Head: No acute intra- or extra-axial fluid collections are identified. Thereis moderate cerebral volume loss with associated ex vacuo ventricular dilatation. The basilar cisterns are patent. No mass effect or midline shift is seen. The heaton-white matter differentiation is normal. Mild periventricular white matter hypoattenuation is indicative of chronic small vessel ischemic disease. There is mild vascular calcification ofthe carotid siphons. No acute calvarial fracture is identified. Maxillofacial: The orbits appear normal. There is moderate paranasal sinus disease.Other than mild osteoarthritis of the temporomandibular joints, the hardpalate, mandible, and temporomandibular joints appear unremarkable. No acute facial bone fractures are identified. The mastoid air cells are clear.No soft tissue abnormality is identified. Cervical spine: The bones are demineralized. Levocurvature from C4 through C7 measures 22 degrees. Vertebral bodiesare normal in height without evidence of acute fracture. Other than middle atlantoaxial joint osteoarthritis, the craniocervical junction appears normal. There is mild degenerative disc disease. No central canalstenosis is seen. The facets appear normal. There are varying degrees of mild uncovertebral joint osteoarthritis. No neural foraminal stenosis isseen. There is atherosclerotic calcification of the carotid bifurcations. Thoracic spine: The bones are demineralized. Levoscoliosis from T3 through T7 measures 17 degrees. No acutefractures. There is mild degenerative disc disease. Schmorl's node is noted at the superior T9 incomplete. Mild chronic-appearing anterior wedging of T11and T12 is noted. No central canal stenosis is seen. The facets appear normal. No neural foraminal stenosis is seen. No soft tissueabnormality is identified. Lumbar spine: The bones are demineralized. There is no scoliosis. Retrolisthesis at L1-L2 measures 4 mm. Chronic vertebra plana of L1 is noted. No acute fractures. There is mild degenerative disc disease. Multilevel mild central canal stenosis. There is mild to moderate multilevel facet arthropathy, more pronounced on the left and in the lower lumbar spine. Mild to moderate bilateral foraminal narrowing is present throughout the lumbar spine, most prominent atL3-L4 and L4-L5. There is atherosclerotic calcification of the abdominalaorta and its branch vessels. IMPRESSION: 1.No acute intracranial process. 2.No acute facial bone fractures identified. 3.No evidence of acute fracture in the cervical, thoracic, or lumbarspine given osteopenia. 4.Chronic vertebral plana deformity of L1. Dictated by Curt Ko DO (doctor of radiology) I, Dr. GABBIE MEREDITH have personally reviewed and interpreted this examination/study. This report was electronically signed by GABBIE MEREDITH on07/25/2021 8:06 AM . Kamilla Marques MD CT ORDERABLES * TROPONIN I (07/24/2021 4:02 PM CDT) Troponin I <0.010 <0.032 ng/mL 07/24/2021 4:39 PM CDT [facility] Blood BLOOD SPECIMEN / Unknown Venipuncture / Unknown 07/24/2021 4:02 PM CDT 07/24/2021 4:22 PM CDT Kamilla Marques MD LAB - CHEMISTRY JASPREET SPICER [facility] [address] [place] [address], [facility] [phone] * BLOOD TYPE VERIFICATION (07/24/2021 4:00 PM CDT) ABO Rh O NEG 07/24/2021 4:3 3 PM CDT [facility] Blood Bank BLOOD SPECIMEN / Unknown Lab Venipuncture / Unknown 07/24/2021 4:00 PM CDT 07/24/2021 4:21 PM CDT Kamilla Marques MD LAB - BLOOD BANK ORD ERABLES [facility] [address] [place] [address], [place] [phone] * XR PELVIS 1 OR 2VW (07/24/2021 3:23 PM CDT) Anatomical Region Laterality Modality Pelvis Radiographic Domi ging 07/24/2021 2:54 PM CDT Impressions 07/24/2021 3:41 PM CDT IMPRESSION: Postoperative changes of a total knee arthroplasty. Comminuted jefe-implant fracture of the distal femoral shaft with apex posterior lateral angulation. Dictated by Curt Ko DO (doctor of radiology). Dr. VIDAL Mares have personally reviewed and interpreted this examination/study. This report was electronically signed by VIDAL SMITH on 07/24/2021 3:41 PM . Narrative 07/24/2021 3:41 PM CDT EXAMINATION: XR PELVIS 1 OR 2VW, XR FEMUR LEFT 2VW HISTORY: Trauma Fracture suspected COMPARISON: None. FINDINGS: Pelvis: No acute fracture is identified. The femoral heads appear well-seated within their respective acetabula. The pubic symphysis is intact. Left femur: Postoperative changes of a total knee arthroplasty. Comminuted jefe-implant fracture of the distal femoral shaft with apex posterior lateral angulation. Procedure Note Vidal Smith DO - 07/24/2021 EXAMINATION: XR PELVIS 1 OR 2VW, XR FEMUR LEFT 2VW HISTORY: Trauma Fracture suspected COMPARISON: None. FINDINGS: Pelvis: No acute fracture is identified. The femoral heads appear well-seated within their respective acetabula. The pubic symphysis is intact. Left femur: Postoperative changes of a total knee arthroplasty. Comminuted jefe-implant fracture of the distal femoral shaft with apex posterior lateral angulation. IMPRESSION: Postoperative changes of a total knee arthroplasty. Comminuted jefe-implant fracture of the distal femoral shaft with apex posterior lateral angulation. Dictated by Curt Ko DO (doctor of radiology). Dr. VIDAL Mares have personally reviewed and interpreted this examination/study. This report was electronically signed by VIDAL SMITH on 07/24/2021 3:41 PM . Kamilla Marques MD DIAGNOSTIC IMAGING O RDERABLES * XR CHEST 1VW PORTABLE (07/24/2021 2:50 PM CDT) Anatomical Region Laterality Modality Chest Radiographic Domi ging 07/24/2021 3:02 PM CDT Impressions 07/24/2021 3:08 PM CDT FINDINGS/IMPRESSION: Right internal jugular central venous catheter projects over the superior cavoatrial junction. There is no focal consolidation, pleural effusion, or pneumothorax. The cardiomediastinal silhouette is normal. The visible bony thorax is intact. Dictated by Curt Ko DO (doctor of radiology). Dr. PALAK Mares MD have personally reviewed and interpreted this examination/study. This report was electronically signed by PALAK TRENT MD on 07/24/2021 3:08 PM . Narrative 07/24/2021 3:08 PM CDT EXAMINATION: XR CHEST 1VW PORTABLE HISTORY: Trauma COMPARISON: No prior study is available for comparison at the time of this dictation. Procedure Note Palak Trent MD - 07/24/2021 EXAMINATION: XR CHEST 1VW PORTABLE HISTORY: Trauma COMPARISON: No prior study is available for comparison at the time ofthis dictation. FINDINGS/IMPRESSION: Right internal jugular central venous catheter projects over thesuperior cavoatrial junction. There is no focal consolidation, pleural effusion, or pneumothorax. The cardiomediastinal silhouette is normal. The visible bony thorax isintact. Dictated by Curt Ko DO (doctor of radiology). Dr. PALAK Mares MD have personally reviewed and interpreted this examination/study. This report was electronically signed by PALAK TRENT MD on 07/24/2021 3:08 PM . Kamilla Marques MD DIAGNOSTIC IMAGING O RDERABLES * (ABNORMAL) TEG 6 GLOBAL HEMOSTASIS W/ LYSIS (07/24/2021 2:43 PM CDT) Citrated Kaolin R (Reaction Time) 3.7(L) 4.6 - 9.1 min 07/24/2021 3:48 PM CDT [facility] Citrated Kaolin LY30 (Lysis) 0.0 0.0 - 2.6 % 07/24/2021 3:48 PM CDT [facility] Citrated RapidTEG MA (Max Amplitude) 69.4 52.0 - 70.0 mm 07/24/2021 3:48 PM CDT [facility] Citrated Functional Fibrinogen MA (Max Amplitude) 41.4(H) 15.0 - 32.0 mm 07/24/2021 3:48 PM CDT [facility] Blood BLOOD SPECIMEN / Unknown Venipuncture / Unknown 07/24/2021 2:43 PM CDT 07/24/2021 2:52 PM CDT Kamilla Marques MD LAB - HEMATOLOGY ORD ERABLES [facility] [address] [place] [address], [facility] [phone] * (ABNORMAL) TEG 6S PLATELET MAPPING (07/24/2021 2:43 PM CDT) TEGPLM (Max Amplitude) Koalin 68 53 - 68 mm 07/24/2021 3:51 PM CDT [facility] TEGPLM (Max Amplitude) ACTF 22(H) 2 - 19 mm 07/24/2021 3:51 PM CDT [facility] TEGPLM (Max Amplitude) ADP 68 45 - 69 mm 07/24/2021 3:51 PM T [facility] TEGPLM (Max Amplitude) AA 68 51 - 71 mm 07/24/2021 3:51 PM T [facility] TEGPLM %Inhibition ADP 1 0 - 17 % 07/24/2021 3:51 PM T [facility] TEGPLM %Inhibition AA 0 0 - 11 % 07/24/2021 3:51 PM T [facility] TEGPLM %Aggregation ADP 99 83 - 100 % 07/24/2021 3:51 PM T [facility] TEGPLM % Aggregation AA 100 89 - 100 % 07/24/2021 3:51 PM CDT [facility] Blood BLOOD SPECIMEN / Unknown Venipuncture / Unknown 07/24/2021 2:43 PM CDT 07/24/2021 2:52 PM CDT Kamilla Marques MD LAB - HEMATOLOGY ORD ERABLES Performing Organization Address [facility]/ZIP Co de Phone Number [facility] [address] [place] [address], [place] [phone] * PTT [facility] (07/24/2021 2:43 PM CDT) APTT 25.5 23.0 - 38.4 Seconds 07/24/2021 3:10 PM CDT [facility] Comment:Suggested therapeuti c range for full dose I.V. unfractionated heparin therapy for venous thromboembolism is 71 to 109 seconds. Blood BLOOD SPECIMEN / Unknown Venipuncture / Unknown 07/24/2021 2:43 PM CDT 07/24/2021 2:51 PM CDT Kamilla Marques MD LAB - COAGULATION OR DERABLES Performing Organization Address [facility] Co de Phone Number [address] [address], [facility] [phone] * PT-INR [facility] (07/24/2021 2:43 PM CDT) PT 13.5 12.1 - 14.8 Seconds 07/24/2021 3:10 PM CDT [facility] INR 1.0 See Comment 07/24/2021 3:10 PM CDT [facility] Comment:The suggested therap eutic range for standard coumadin (warfarin) therapy is an INR of 2.0-3.0. For high-risk patients (Mechanical Mitral Valve Prosthesis, etc.), the suggested prophylactic therapeutic range is an INR of 2.5-3.5. Blood BLOOD SPECIMEN / Unknown Venipuncture / Unknown 07/24/2021 2:43 PM CDT 07/24/2021 2:51 PM CDT Kamilla Marques MD LAB - COAGULATION OR DERABLES Performing Organization Address [facility]/ZIP Co de Phone Number [facility] [address] [place] [id number], [place] [phone] * CK BLOOD (07/24/2021 2:43 PM CDT) [facility] CK Total 55 30 - 200 U/L 07/24/2021 3:38 PM CDT [facility] Blood BLOOD SPECIMEN / Unknown Venipuncture / Unknown 07/24/2021 2:43 PM CDT 07/24/2021 2:56 PM CDT Kamilla Marques MD LAB - CHEMISTRY JASPREET SPICER Performing Organization Address [facility]/ZIP Co de Phone Number [address] [address], [facility] [phone] * ALCOHOL ETHYL BLOOD (07/24/2021 2:43 PM CDT) [facility] Ethanol (mg/dL) <10 <10 mg/dL 3:38 PM CDT [facility] Ethanol Calculated (g/dL) <0.010 <0.010 g/dL 07/24/2021 3:38 PM CDT [facility] Blood BLOOD SPECIMEN / Unknown Venipuncture / Unknown 07/24/2021 2:43 PM CDT 07/24/2021 2:56 PM CDT Narrative [facility] - 07/24/2021 3:38 PM CDT Ethanol Interp <10: None Detected. Depression of BRANCHER: >100 mg/dl Potentially Critical: >250 mg/dl Potentially Fatal >400 mg/dl Ethanol in the patient's blood will contribute to the osmolar gap. Ethanol's contribution to the osmolar gap can be estimated by dividing the concentration of ethanol in mg/dL by 4.6. This test is for clinical use only and does not equal a HAILE for legal purposes. Kamilla Marques MD LAB - CHEMISTRY JASPREET SPICER Performing Organization Address [facility]/ZIP Co de Phone Number [address] [address], [facility] [phone] * 1 Units (07/24/2021 2:34 PM CDT) [facility] Unit Description LR Whole BLood [facility] Unit ABO O [facility] Unit Rh NEG [facility] Product Number [id number] [facility] Unit Donor # [id number] [facility] Unit Status transfused [facility] Product Code [id number] [facility] Blood Type Barcode 9500 [facility] Expiration Date [id number] S BLOOD BANK LAB Blood Bank BLOOD SPECIMEN / Unknown 07/24/2021 2:53 PM CDT Provider Unknown LAB - BLOOD BANK ORD ERABLES [facility] [address] [place] [address], [facility] [phone] Care Teams Salad Counter Attendant Relationship Specialty Start Date End Date Mendez Mendoza, JANELL-CORRESPONDENCE COORDINATOR [address] [place] [address] PCP - General 07/25/21
--- OUTSIDE RECORDS SUMMARY | 2024-06-26 17:28 | XMS_ITS | Referral Summary ---
Author Organization [facility] [employer] Address [address] [place] [address] Care Team Providers Care Bottom Sander Name Role Phone Mendez Mendoza GEL COAT SPRAYER-CRIB PAD MAKER Primary Care Provider Source Comments [facility] [employer]non-owned Affiliates and Associated Physician Practices is amultiple site organization consisting of ambulatory clinics and hospital sitesin [place], [place], [place] and [place]. This disclosure is being madepursuant to the Care Everywhere program and may not contain all information available regarding this patient. Last updated 18.[employer] Allergies No known active allergies Medications * [...] Mass Index 37.11 11/21/2021 12:22 PM CDT Functional Status Functional Status Response Date of Assess ment Is person deaf or have serious hearing difficult y? No 07/25/2021 Is person blind or have serious difficulty seein g? No 07/25/2021 Does person have serious dif ficulty walking/climbing stairs? No 07/25/2021 Does person have difficulty dressing/bathing? No 07/25/2021 Does person have difficulty doing errands alone? No 07/25/2021 Cognitive Status Response Date of Assessm ent Does person have difficulty concentrating/remembering/making decisions? No 07/25/2021 Plan of Treatment Not on file Medical Devices Implanted Type Area Multicraft Operator Device Identifier Shelf Expiration Date Model / Serial / Lot Pin Hlf 255mm 5mm Jtx Lng Ss 35mm Extfix Implanted:Qty: 2 on 07/24/2021 by Ray David MD at [facility] Left: Femur [employer] [id number] / / Pin Hlf 225mm 5mm Jtx Lng Orth Ss 40mm Implanted:Qty: 2 on 07/24/2021 by Ray David MD at [facility] Left: Femur [employer] [id number] / / Screw 4.5mm 40mm Ft Hex Fem Rodrigue Dist Implanted:Qty: 1 on 07/27/2021 by Malena Simon MD at [facility] Left: Femur [employer] 8157-45-040 / / Screw 4.5mm 42mm Ft Rodrigue Nonster Bone Implanted:Qty: 1 on 07/27/2021 by Malena Simon MD at [facility] Left: Femur [employer] [id number] / / Plate 12 Hl Lck Precontr Fem Lt Dist Implanted:Qty: 1 on 07/27/2021 by Malena Simon MD at [facility] Left: Femur [employer] 12/20/2026 [id number] / / [id number] Screw 8mm 85mm Ft Maribeth Lck Fem Tib Prox Implanted:Qty: 1 on 07/27/2021 by Malena Simon MD at [facility] Left: Femur [employer] [id number] / / Screw 5.5mm 80mm Ft Pa Lck Tib Canc Prox Implanted:Qty: 1 on 07/27/2021 by Malena Simon MD at [facility] Left: Femur [employer] 8153-55-080 / / Screw 5.5mm 75mm Ft Pa Lck Tib Canc Prox Implanted:Qty: 3 on 07/27/2021 by Malena Simon MD at [facility] Left: Femur [employer] [id number] / / Screw 4.5mm 38mm Ft Rodrigue Nonster Bone Implanted:Qty: 2 on 07/27/2021 by Malena Simon MD at [facility] Left: Femur [employer] 8157-45-038 / / Explanted Type Area Multicraft Operator Device Identifier Shelf Expiration Date Model / Serial / Lot Gd Pin Orth 3.2mm Polyax Fem Clbrt Lck Explanted:Qty: 1 on 07/27/2021 by Malena Simon MD at [facility] Left: Femur [employer] [id number] / / Wire K 1.6mm 6in Hlf Bynt Pnt Ss Fx Explanted:Qty: 2 on 07/27/2021 by Malena Simon MD at [facility] Left: Femur [employer] [id number] / / Advance Directives * Full Code (Latest Code Status on File) Date Activated Date Inactivated Comments 07/24/2021 5:34 PM 08/03/2021 2:33 PM Care Teams Bottom Sander Relationship Specialty Start Date End Date Mendez Mendoza, GEL COAT SPRAYER-CRIB PAD MAKER [address] [place] [id number] PCP - General 07/25/21
--- OUTSIDE RECORDS SUMMARY | 2024-06-26 17:29 | XMS_ITS | Continuity of Care Document ---
Author Organization [facility] Address [address] [place] [address] Phone Care Team Providers Care Certified Medical Assistant Name Role Phone Payam Buckley Unavailable Unavailable Procedures Procedure Date Office/outpatient Visit, Est Visual Field Examination(s) Office/outpatient Visit, Est Office/outpatient Visit, Est Visual Field Examination(s) Office/outpatient Visit, Est Eye Exam Established Pt Eye Exam Established Pt Optic Nerve Topography Optic Nerve Topography Office/outpatient Visit, Est Visual Field Examination(s) Office/outpatient Visit, Est Office/outpatient Visit, Est Corneal Pachymetry Eye Exam Established Pt Office Consultation Advance Directives Directive Yes / No Effective Date File Name No Information Encounters Encounter Description Practice Location Reason(s) For Visit Diagnoses Date Provider Providers Copied on Encounter Office/outpati ent Visit, Est [facility], [address], [place], [place], [id number], [place] tel:[phone] [facility] [place] No Information 1-201 0 Marcio Hare. [address] [facility] , [address], [place], [address], [place]. tel:[phone] Referring Provider: Malka Simmons OD, [facility] [address] [place], [address]. tel:[phone] [facility], [address] [place] [address] [address], [place], [place], [id number], [place] tel:[phone] [facility] No Information 8-201 0 Krishnasamy Alejo. [facility] [address], [facility], [place]. tel:[phone] Referring Provider: Malka Simmons OD, [facility] [address] [place], [address]. tel:[phone] [facility]i [facility], [address] [place] [address] [address], [place], [place], [id number], [place] tel:[phone] [facility] [place] No Information 2-201 0 Krishnasamy Alejo. [address] [place] [address], [facility], [place]. tel:[phone] Referring Provider: Malka Simmons OD, [facility] [address] [place], [address]. tel:[phone] Office/outpati ent Visit, [facility], [address] [place] [address] [address], [place], [place], [address], [place] tel:[phone] [facility] [place] No Information 5-200 9 Krishnasamy Alejo. [facility] [address], [facility], [place]. tel:[phone] Referring Provider: Malka Simmons OD, [facility] [address] [place], [address]. tel:[phone] [facility], [address], [place], [place], [address], [place] tel:[phone] [facility] [place] No Information 2-200 9 Krishnasamy Alejo. [facility], [facility], [place]. tel:[phone] Referring Provider: Alejo sebastian, [address] [place] [address], [facility]. tel:[phone] Office/outpati ent Visit, [facility], [address] [place] [address] [address], [place], [place], [address], [place] tel:[phone] [facility] No Information 3-200 9 Krishnasamy Alejo. [address] [place] [address], [facility], [place]. tel:[phone] Referring Provider: Malka Simmons OD, [facility] [address] [place], [place], [facility]. tel:[phone] [facility], [address] [place] [address] [address], [place], [place], [address], [place] tel:[phone] [facility] No Information Jan-2 3-200 8 Krishnasamy Alejo. [address] [place] [address], [facility], [place]. tel:[phone] Referring Provider: Malka Simmons OD, [facility] [address] [place], [address]. tel:[phone] [facility], [address] [place] [address] [address], [place], [place], [address], [place] tel:[phone] [facility] No Information Sep-0 9-200 8 Krishnasamy Alejo. [address] [place] [address], [facility], [place]. tel:[phone] Referring Provider: Malka Simmons OD, [facility] [address] [place], [address]. tel:[phone] [facility], [address] [place] [address] [address], [place], [place], [id number], [place] tel:[phone] [facility] [place] No Information 1 5-200 8 Krishnasamy Alejo. [address] [place] [address], [facility], [place]. tel:[phone] Referring Provider: Alejo sebastian, [address] [place], [place] [address]ate [address], [facility]. tel:[phone] Office/outpati ent Visit, [facility], [address] [place] [address] [address], [place], [place], [address], [place] tel:[phone] [facility] No Information 0-200 8 Krishnasamy Alejo. [address] [place] [address], [facility], [place]. tel:[phone] Referring Provider: Malka Simmons OD, [facility] [address] [place], [address]. tel:[phone] [facility], [address] [place] [address] [address], [place], [place], [id number], [place] tel:[phone] [facility] No Information 0 8-200 8 Krishnasamy Alejo. [address] [place] [address], [facility], [place]. tel:[phone] Referring Provider: Malka Simmons OD, [facility] [address] [place], [address]. tel:[phone] Office/outpati ent Visit, [facility], [address] [place] [address] [address], [place], [place], [address], [place] tel:[phone] [facility] [place] No Information May-0 8-200 8 [place]. [address] [facility], [place], [place], [address], [place]. tel:[phone] Referring Provider: Malka Simmons OD, [facility] [address] [place], [address]. tel:[phone] Office/outpati ent Visit, [facility], [address] [place] [address] [address], [place], [place], [address], tel:[phone] [facility] No Information 2-200 7 [place]. [address] [facility] [place], [place], [address], [place]. tel:[phone] Referring Provider: Malka Simmons OD, [facility] [address] [place] [address], [address]. tel:[phone] [facility], [address] [place], [place] [address], [place], [place], [address], tel:[phone] [facility] No Information 0 8-200 7 [place]. [address] [facility], [facility] [place], [place], [address], [place]. tel:[phone] Referring Provider: Silviano Hernandez, [address] [place], [address] . tel:[phone] Office Consultation [facility], [address] [place], [place] [address], [place], [place], [address], tel:[phone] [facility] No Information 6-200 7 Anya [place]. [address] [facility], [facility] [place], [place], [address], [place]. tel:[phone] Referring Provider: Malka Simmons OD, [facility] [address] [place] [address], [address]. tel:[phone] Family History Family Member Type Diagnosis Age At Onset No Information Payers Payer name Insurance type Covered libertarian ID Authoriza tion(s) Medicaid [facility] [id number] Social History Type Description Quantity Date Captured Comments Sex Female Smoking Status No Information Chief Complaint And Reason For Visit No Information Reason For Referral Reason For Referral No Information History Of Present Illness Encounter Date Complaint History Of Prese nt Illness No Information Functional Status Date Functional Assessmen t No Information Instructions Date Instruction Additional Infor mation No Information Assessments Type Assessment Date No Information Patient Care Teams Name Effective Dates (start - stop) Status Members No Information
--- OUTSIDE RECORDS SUMMARY | 2024-06-26 17:29 | XMS_ITS | Data Portability ---
Author Organization [facility] Address [address] [place] [address] Assessment No assessment recorded. Plan of Treatment Reminders Order Date Submit Date Provider Last Modified By Organization Details Last Modified Time Details Appointments None recorded. Lab HbA1c (hemoglobi n A1c), blood 2019 [facility], [address] [place] [address], [address], [place], [address], 0 09:08:29 CMP, serum or plasma 2019 [facility], [address] [place] [address], [address], [place], [address], 0 09:08:27 lipid panel, serum 2019 [facility], [address] [place] [address], [address], [place], [address], 0 09:08:28 CK (creatine kinase), total, serum 2019 [facility], [address] [place] [address], [address], [place], [address], 0 09:08:30 CBC w/ auto diff 2019 [facility], [address] [place] [address], [address], [place], [address], 0 09:08:26 magnesium, serum or plasma 2019 020 [facility], [address] [facility], [address], [place], [address], 0 09:08:30 vitamin D, 25-hydroxy , total, serum 2019 020 [facility], [address] [facility], [address], [place], [address], 0 09:08:29 vitamin B12 + folate, serum or blood 2019 020 [facility], [address] [place] [address], [address], [place], [address], 0 09:08:28 TSH + free T4, serum 2019 020 [facility], [address] [place] [address], [address], [place], [address], 0 09:08:26 Referral behavioral health referral 2022 023 [email or web address] Alexus Alfredo, [address] [place], [address], 3 15:03:53 Procedures None recorded. Surgeries None recorded. Imaging US, lower extremity, nonvascula r - pain right knee 2020 021 [facility] ([facility]), [address] [place], [address], 1 18:05:10 US, lower extremity, nonvascula r 2017 [email or web address] ([facility]), [address] [place], [address], 8 17:43:07 Medication Orders fenofibrat e nanocrysta llized 145 mg tablet 2022 023 [facility], [address] [place] [address], [id number], 4 10:17:16 atorvastat in 10 mg tablet 2022 023 [facility], [address] [place] [address], [id number], 4 10:17:13 ezetimibe 10 mg tablet 2022 023 [facility], [address] [place] [address], [id number], 3 12:01:28 alendronat e 70 mg tablet 2022 023 [facility], [address] [place] [address], [id number], 4 10:17:04 Calcium 600 + D(3) 600 mg-10 mcg (400 unit) tablet 2022 023 [facility], [address] [place] [address], [id number], 3 12:21:25 Claritin 10 mg tablet 2022 023 [facility], [address] [place] [address], [id number], 3 12:21:25 Linzess 145 mcg capsule 2022 023 [facility], [address] [place] [address], [id number], 3 12:01:28 losartan 25 mg tablet 2022 023 [facility], [address] [place] [address], [id number], 4 10:17:15 gabapentin 300 mg capsule 2022 023 [facility], [address] [place] [address], [id number], 4 10:17:16 tramadol 50 mg tablet 2020 021 [facility] [address], [address], 3 11:12:50 Linzess 145 mcg capsule 2019 020 [facility] [address] In [facility], [address] [place] [address], [address], 0 10:12:18 fenofibrat e micronized 134 mg capsule 2019 020 [facility] [address], [address], 3 12:01:21 donepezil 10 mg tablet 2019 020 [facility] [address], [address], 0 10:10:00 Pennsaid 20 mg/gram/ac tuation (2 %) topical soln in metered-do se pump 2019 020 [facility], [address] [place] [address], [id number], 0 10:12:37 gabapentin 300 mg capsule 2019 020 [facility] [address], [address], 0 10:10:00 Patient TargetsNo targets recorded. Patient Instructions Encounter Date Encounter Id Patient Instructions Last Modified By Organization Details Last Modified Time 11/08/2017 [id number] get dilated eye exam ... [email or web address] Not available 11/09/2017 13:19:39 hgb A1c is perfect at 5.5 continue same ... [email or web address] Not available 11/09/2017 13:19:08 12/27/2017 [id number] will send to ortho if ultrasound is abnormal . (ortho had wanted to do both knees ,just did the left ) [email or web address] Not available 12/27/2017 20:41:38 08/08/2019 [id number] Get dilated eye exam .... [email or web address] Not available 08/10/2019 19:24:41 Discussed possibility of increasing the donepezil , but let's see her back one time before I do that .... and it may not help ........ [email or web address] Not available 08/10/2019 19:24:18 06/21/2022 [id number] osteoporosis: care instructions [email or web address] Not available 06/21/2022 12:09:42 seasonal allergies: care instructions [facility] Not available 06/21/2022 12:09:42 learning about high blood pressure [facility] Not available 06/21/2022 12:09:42 Reason for Referral Behavioral Health Referral f or Chronic anxiety Referring Physician: Amandeep Rowe, Internal Medicine, Encounter Date: 06/21/2022 Results Created Date Observation Date Name Description Value Unit Range Abnormal Flag Note LastModifiedBy Organization Detail LastModifiedTime 11/06/19 18 11/06/2017 TSH + free T4, serum TSH 2.770 uIU/m L 0.450- 4.500 Not Available [facility] ([facility]) [address] [place], [address], 11/06/2017 08:27:09 11/06/19 18 11/06/2017 TSH + free T4, serum T4,free(dire ct) 1.00 NG/dL 0.82-1 .77 Not Available [facility] ([facility]) [address] [place], [address], 11/06/2017 08:27:09 11/06/19 18 11/06/2017 CMP, serum or plasm a glucose 81 mg/dL 65-99 Not Available [facility] ([facility]) [address] [place], [address], 11/06/2017 08:27:09 11/06/19 18 11/06/2017 CMP, serum or plasm a BUN 24 mg/dL 8-27 Not Available [facility] ([facility]) [address] [place], [address], 11/06/2017 08:27:09 11/06/19 18 11/06/2017 CMP, serum or plasm a creatinine 0.71 mg/dL 0.57-1 .00 Not Available [facility] ([facility]) [address] [place], [address], 11/06/2017 08:27:09 11/06/19 18 11/06/2017 CMP, serum or plasm a eGFR if nonafricn AM 88 mL/mi n/1.7 3 >59 Not Available [facility] ([facility]) [address] [place], [address], 11/06/2017 08:27:09 11/06/19 18 11/06/2017 CMP, serum or plasm a eGFR if africn AM 102 mL/mi n/1.7 3 >59 Not Available [facility] ([facility]) [address] [place], [address], 11/06/2017 08:27:09 11/06/19 18 11/06/2017 CMP, serum or plasm a BUN/creatini ne ratio 34 12-28 above high normal Not Available [facility] ([facility]) [address] [place], [address], 11/06/2017 08:27:09 11/06/19 18 11/06/2017 CMP, serum or plasm a sodium 141 mmol/ L 134-14 4 Not Available [facility] ([facility]) [address] [place], [address], 11/06/2017 08:27:09 11/06/19 18 11/06/2017 CMP, serum or plasm a potassium 5.1 mmol/ L 3.5-5. 2 Not Available [facility] ([facility]) [address], [place], [address], 11/06/2017 08:27:09 11/06/19 18 11/06/2017 CMP, serum or plasm a chloride 103 mmol/ L 96-106 Not Available [facility] ([facility]) [address], [place], [address], 11/06/2017 08:27:09 11/06/19 18 11/06/2017 CMP, serum or plasm a carbon dioxide, total 25 mmol/ L 20-29 Ple ase note refer ence lakeisha villanueva Not Available [facility] ([facility]) [address], [place], [address], 11/06/2017 08:27:09 11/06/19 18 11/06/2017 CMP, serum or plasm a calcium 9.9 mg/dL 8.7-10 .3 Not Available [facility] ([facility]) [address], [place], [address], 11/06/2017 08:27:09 11/06/19 18 11/06/2017 CMP, serum or plasm a protein, total 6.6 g/dL 6.0-8. 5 Not Available [facility] ([facility]) [address], [place], [address], 11/06/2017 08:27:09 11/06/19 18 11/06/2017 CMP, serum or plasm a albumin 4.1 g/dL 3.6-4. 8 Not Available [facility] ([facility]) [address], [place], [address], 11/06/2017 08:27:09 11/06/19 18 11/06/2017 CMP, serum or plasm a globulin, total 2.5 g/dL 1.5-4. 5 Not Available [facility] ([facility]) [address], [place], [address], 11/06/2017 08:27:09 11/06/19 18 11/06/2017 CMP, serum or plasm a A/G ratio 1.6 1.2-2. 2 Not Available [facility] ([facility]) [address], [place], [address], 11/06/2017 08:27:09 11/06/19 18 11/06/2017 CMP, serum or plasm a bilirubin, total 0.4 mg/dL 0.0-1. 2 Not Available [facility] ([facility]) [address], [place], [address], 11/06/2017 08:27:09 11/06/19 18 11/06/2017 CMP, serum or plasm a alkaline phosphatase 88 IU/L 39-117 Not Available [facility] ([facility]) [address], [place], [address], 11/06/2017 08:27:09 11/06/19 18 11/06/2017 CMP, serum or plasm a AST (SGOT) 19 IU/L 0-40 Not Available [facility] ([facility]) [address], [place], [address], 11/06/2017 08:27:09 11/06/19 18 11/06/2017 CMP, serum or plasm a ALT (SGPT) 10 IU/L 0-32 Not Available [facility] ([facility]) [address], [place], [address], 11/06/2017 08:27:09 11/06/19 18 11/06/2017 lipid panel , serum cholesterol, total 149 mg/dL 100-19 9 Not Available [facility] ([facility]) [address], [place], [address], 11/06/2017 08:27:10 11/06/19 18 11/06/2017 lipid panel , serum triglyceride s 120 mg/dL 0-149 Not Available [facility] ([facility]) [address] [facility], [address], 11/06/2017 08:27:10 11/06/19 18 11/06/2017 lipid panel , serum HDL cholesterol 40 mg/dL >39 Not Available [facility] ([facility]) [address], [place], [address], 11/06/2017 08:27:10 11/06/19 18 11/06/2017 lipid panel , serum VLDL cholesterol adrienne 24 mg/dL 5-40 Not Available [facility] ([facility]) [address], [place], [address], 11/06/2017 08:27:10 11/06/19 18 11/06/2017 lipid panel , serum LDL cholesterol calc 85 mg/dL 0-99 Not Available [facility] ([facility]) [address], [place], [address], 11/06/2017 08:27:10 11/06/19 18 11/06/2017 lipid panel , serum comment: VENDING MACHINE MECHANIC Not Available [facility] ([facility]) [address], [place], [address], 11/06/2017 08:27:10 11/06/19 18 11/06/2017 lipid panel , serum LDL/HDL ratio 2.1 ratio 0.0-3. 2 LDL/H DL Ratio Men Women 1/2 Avg.R isk 1.0 1.5 Avg.R isk 3.6 3.2 2X Avg.R isk 6.2 5.0 3X Avg.R isk 8.0 6.1 Not Available [facility] ([facility]) [address], [place], [place], [address], 11/06/2017 08:27:10 11/06/19 18 11/06/2017 HbA1c (hemo globi n A1c), blood hemoglobin A1C 5.5 % 4.8-5. 6 Pre-d iabet es: 5.7 - 6.4 Diabe keely: >6.4 Glyce ritu contr ol for adult s with diabe keely: <7.0 Not Available [facility] ([facility]) [address], [place], [place], [address], 11/06/2017 08:27:10 11/06/19 18 11/06/2017 vitam in D, 25-hy droxy , total , serum vitamin D, 25-hydroxy 34.0 NG/mL 30.0-1 00.0 Vitam in D defic iency has been defin ed by the Insti tute of Medic ine and an Endoc rine Socie ty pract ice guide line as a level of serum 25-OH vitam in D less than 20 ng/mL (1,2) . The Endoc rine Socie ty went on to furth er defin e vitam in D insuf ficie ncy as a level betwe en 21 and 29 ng/mL (2). 1. IOM (Inst itute of Medic ine). 2009. Christophe ry refer ence duncan es for calci um and D. Umair cortez [place]: The Natio nal [facility] Press . 2. Shahnaz espinosa [place], Lynnette roper [place], Dav off-F errar i LEMUS, et al. Evalu ation , treat ment, and preve ntion of vitam in D defic iency : an Endoc rine Socie ty clini adrienne pract ice guide line. JCEM. 2010; 96(7) :1911 -30. Not Available [facility] ([facility]) [address], [place], [place], [address], 11/06/2017 08:27:11 11/06/19 18 11/06/2017 CK (crea judi kinas e), total , serum creatine kinase,total 22 U/L 24-173 below low normal Not Available [facility] ([facility]) [address] [place], [address], 11/06/2017 08:27:11 11/06/19 18 11/06/2017 diabe keely patie nt educa tion pdf image . Not Available [facility] ([facility]) [address] [place], [address], 11/06/2017 08:27:12 08/08/19 20 08/09/2019 TSH + free T4, serum TSH 1.900 uIU/m L 0.450- 4.500 Not Available [facility] ([facility]) [address], [place], [place], [address], 08/09/2019 09:08:26 08/08/1908/09/2019 TSH + free T4, serum T4,free(dire ct) 1.16 NG/dL 0.82-1 .77 Not Available [facility] ([facility]) [address], [place], [place], [address], 08/09/2019 09:08:26 08/08/1908/09/2019 CBC w/ auto diff WBC 6.5 x10e3 /uL 3.4-10 .8 Not Available [facility] ([facility]) [address], [place], [place], [address], 08/09/2019 09:08:26 08/08/1908/09/2019 CBC w/ auto diff RBC 4.80 x10e6 /uL 3.77-5 .28 Not Available [facility] ([facility]) [address] [place], [address], 08/09/2019 09:08:26 08/08/1908/09/2019 CBC w/ auto diff hemoglobin 11.8 g/dL 11.1-1 5.9 Not Available [facility] ([facility]) [address] [place], [address], 08/09/2019 09:08:26 08/08/1908/09/2019 CBC w/ auto diff hematocrit 39.0 % 34.0-4 6.6 Not Available [facility] ([facility]) [address] [place], [address], 08/09/2019 09:08:26 08/08/1908/09/2019 CBC w/ auto diff MCV 81 fL 79-97 Not Available [facility] ([facility]) [address], [place], [place], [address], 08/09/2019 09:08:26 08/08/1908/09/2019 CBC w/ auto diff MCH 24.6 pg 26.6-3 3.0 below low normal Not Available [facility] ([facility]) [address], [place], [place], [address], 08/09/2019 09:08:26 08/08/19 20 08/09/2019 CBC w/ auto diff MCHC 30.3 g/dL 31.5-3 5.7 below low normal Not Available [facility] ([facility]) [address], [place], [place], [address], 08/09/2019 09:08:26 08/08/1908/09/2019 CBC w/ auto diff RDW 14.0 % 11.7-1 5.4 Not Available [facility] ([facility]) [address], [place], [place], [address], 08/09/2019 09:08:26 08/08/1908/09/2019 CBC w/ auto diff platelets 438 x10e3 /uL 150-45 0 Not Available [facility] ([facility]) [address], [place], [place], [address], 08/09/2019 09:08:26 08/08/1908/09/2019 CBC w/ auto diff neutrophils 64 % not estab. Not Available [facility] ([facility]) [address], [place], [place], [address], 08/09/2019 09:08:26 08/08/1908/09/2019 CBC w/ auto diff lymphs 24 % not estab. Not Available [facility] ([facility]) [address], [place], [place], [address], 08/09/2019 09:08:26 08/08/19 08/09/2019 CBC w/ auto diff monocytes 6 % not estab. Not Available [facility] ([facility]) [address] [place], [address], 08/09/2019 09:08:26 08/08/19 20 08/09/2019 CBC w/ auto diff eos 4 % not estab. Not Available [facility] ([facility]) [address] [place], [address], 08/09/2019 09:08:26 08/08/19 20 08/09/2019 CBC w/ auto diff basos 1 % not estab. Not Available [facility] ([facility]) [address] [place], [address], 08/09/2019 09:08:26 08/08/19 20 08/09/2019 CBC w/ auto diff immature cells VENDING MACHINE MECHANIC Not Available [facility] ([facility]) [address] [place], [address], 08/09/2019 09:08:26 08/08/19 20 08/09/2019 CBC w/ auto diff neutrophils (absolute) 4.2 x10e3 /uL 1.4-7. 0 Not Available [facility] ([facility]) [address] [place], [address], 08/09/2019 09:08:26 08/08/1908/09/2019 CBC w/ auto diff lymphs (absolute) 1.6 x10e3 /uL 0.7-3. 1 Not Available [facility] ([facility]) [address] [place], [address], 08/09/2019 09:08:26 08/08/19 20 08/09/2019 CBC w/ auto diff monocytes(ab solute) 0.4 x10e3 /uL 0.1-0. 9 Not Available [facility] ([facility]) [address] [place], [address], 08/09/2019 09:08:26 08/08/19 20 08/09/2019 CBC w/ auto diff eos (absolute) 0.3 x10e3 /uL 0.0-0. 4 Not Available [facility] ([facility]) [address], [place], [place], [address], 08/09/2019 09:08:26 08/08/19 20 08/09/2019 CBC w/ auto diff baso (absolute) 0.1 x10e3 /uL 0.0-0. 2 Not Available [facility] ([facility]) [address], [place], [place], [address], 08/09/2019 09:08:26 08/08/1908/09/2019 CBC w/ auto diff immature granulocytes 1 % not estab. Not Available [facility] ([facility]) [address], [place], [place], [address], 08/09/2019 09:08:26 08/08/19 20 08/09/2019 CBC w/ auto diff immature grans (abs) 0.0 x10e3 /uL 0.0-0. 1 Not Available [facility] ([facility]) [address] [place], [address], 08/09/2019 09:08:26 08/08/19 20 08/09/2019 CBC w/ auto diff NRBC VENDING MACHINE MECHANIC Not Available [facility] ([facility]) [address], [place], [place], [address], 08/09/2019 09:08:26 08/08/1908/09/2019 CBC w/ auto diff hematology comments: VENDING MACHINE MECHANIC Not Available [facility] ([facility]) [address] [place], [address], 08/09/2019 09:08:26 08/08/19 20 08/09/2019 CMP, serum or plasm a glucose 98 mg/dL 65-99 Not Available [facility] ([facility]) [address] [place], [address], 08/09/2019 09:08:27 08/08/19 20 08/09/2019 CMP, serum or plasm a BUN 15 mg/dL 8-27 Not Available [facility] ([facility]) [address], [place], [address], 08/09/2019 09:08:27 08/08/19 20 08/09/2019 CMP, serum or plasm a creatinine 0.73 mg/dL 0.57-1 .00 Not Available [facility] ([facility]) [address], [place], [address], 08/09/2019 09:08:27 08/08/19 20 08/09/2019 CMP, serum or plasm a eGFR if nonafricn AM 84 mL/mi n/1.7 3 >59 Not Available [facility] ([facility]) [address] [place], [address], 08/09/2019 09:08:27 08/08/19 20 08/09/2019 CMP, serum or plasm a eGFR if africn AM 97 mL/mi n/1.7 3 >59 Not Available [facility] ([facility]) [address] [place], [address], 08/09/2019 09:08:27 08/08/19 20 08/09/2019 CMP, serum or plasm a BUN/creatini ne ratio 21 - Not Available [facility] ([facility]) [address] [place], [address], 08/09/2019 09:08:27 08/08/19 20 08/09/2019 CMP, serum or plasm a sodium 144 mmol/ L 134-14 4 Not Available [facility] ([facility]) [address] [place], [address], 08/09/2019 09:08:27 08/08/19 20 08/09/2019 CMP, serum or plasm a potassium 5.1 mmol/ L 3.5-5. 2 Not Available [facility] ([facility]) [address], [place], [address], 08/09/2019 09:08:27 08/08/1908/09/2019 CMP, serum or plasm a chloride 104 mmol/ L 96-106 Not Available [facility] ([facility]) [address], [place], [address], 08/09/2019 09:08:27 08/08/19 20 08/09/2019 CMP, serum or plasm a carbon dioxide, total 22 mmol/ L 20-29 Not Available [facility] ([facility]) [address], [place], [address], 08/09/2019 09:08:27 08/08/1908/09/2019 CMP, serum or plasm a calcium 9.8 mg/dL 8.7-10 .3 Not Available [facility] ([facility]) [address], [place], [address], 08/09/2019 09:08:27 08/08/1908/09/2019 CMP, serum or plasm a protein, total 7.2 g/dL 6.0-8. 5 Not Available [facility] ([facility]) [address], [place], [address], 08/09/2019 09:08:27 08/08/1908/09/2019 CMP, serum or plasm a albumin 4.0 g/dL 3.8-4. 8 Not Available [facility] ([facility]) [address], [place], [address], 08/09/2019 09:08:27 08/08/1908/09/2019 CMP, serum or plasm a globulin, total 3.2 g/dL 1.5-4. 5 Not Available [facility] ([facility]) [address], [place], [address], 08/09/2019 09:08:27 08/08/1908/0808/09/2019 CMP, serum or plasm a A/G ratio 1.3 1.2-2. 2 Not Available [facility] ([facility]) [address], [place], [address], 08/09/2019 09:08:27 08/08/19 20 08/09/2019 CMP, serum or plasm a bilirubin, total 0.4 mg/dL 0.0-1. 2 Not Available [facility] ([facility]) [address], [place], [address], 08/09/2019 09:08:27 08/08/19 20 08/09/2019 CMP, serum or plasm a alkaline phosphatase 94 IU/L 39-117 Not Available [facility] ([facility]) [address], [place], [address], 08/09/2019 09:08:27 08/08/19 20 08/09/2019 CMP, serum or plasm a AST (SGOT) 18 IU/L 0-40 Not Available [facility] ([facility]) [address], [place], [address], 08/09/2019 09:08:27 08/08/19 20 08/09/2019 CMP, serum or plasm a ALT (SGPT) 7 IU/L 0-32 Not Available [facility] ([facility]) [address], [place], [address], 08/09/2019 09:08:27 08/08/19 20 08/09/2019 lipid panel , serum cholesterol, total 187 mg/dL 100-19 9 Not Available [facility] ([facility]) [address], [place], [address], 08/09/2019 09:08:28 08/08/19 20 08/09/2019 lipid panel , serum triglyceride s 117 mg/dL 0-149 Not Available [facility] ([facility]) [address] [place], [address], 08/09/2019 09:08:28 08/08/19 20 08/09/2019 lipid panel , serum HDL cholesterol 49 mg/dL >39 Not Available [facility] ([facility]) [address] [place], [address], 08/09/2019 09:08:28 08/08/19 20 08/09/2019 lipid panel , serum VLDL cholesterol adrienne 23 mg/dL 5-40 Not Available [facility] ([facility]) [address] [place], [address], 08/09/2019 09:08:28 08/08/19 20 08/09/2019 lipid panel , serum LDL cholesterol calc 115 mg/dL 0-99 above high normal Not Available [facility] ([facility]) [address] [place], [address], 08/09/2019 09:08:28 08/08/19 20 08/09/2019 lipid panel , serum comment: VENDING MACHINE MECHANIC Not Available [facility] ([facility]) [address] [place], [address], 08/09/2019 09:08:28 08/08/1908/09/2019 lipid panel , serum LDL/HDL ratio 2.3 ratio 0.0-3. 2 LDL/H DL Ratio Men Women 1/2 Avg.R isk 1.0 1.5 Avg.R isk 3.6 3.2 2X Avg.R isk 6.2 5.0 3X Avg.R isk 8.0 6.1 Not Available [facility] ([facility]) [address], [place], [address], 08/09/2019 09:08:28 08/08/1908/09/2019 vitam in B12 + folat e, serum or blood vitamin B12 528 pg/mL 232-12 45 Not Available [facility] ([facility]) [address], [place], [address], 08/09/2019 09:08:28 08/08/19 20 08/09/2019 vitam in B12 + folat e, serum or blood folate (folic acid), serum 9.1 NG/mL >3.0 A serum folat e eloise ntrat ion of less than 3.1 ng/mL is consi dered to repre sent clini adrienne defic iency . Not Available [facility] ([facility]) [address], [place], [place], [address], 08/09/2019 09:08:28 08/08/19 20 08/09/2019 HbA1c (hemo globi n A1c), blood hemoglobin A1C 5.4 % 4.8-5. 6 Predi abete s: 5.7 - 6.4 Diabe keely: >6.4 Glyce ritu contr ol for adult s with diabe keely: <7.0 Not Available [facility] ([facility]) [address], [place], [place], [address], 08/09/2019 09:08:29 08/08/19 20 08/09/2019 vitam in D, 25-hy droxy , total , serum vitamin D, 25-hydroxy 29.4 NG/mL 30.0-1 00.0 below low normal Vitam in D defic iency has been defin ed by the Insti tute of Medic ine and an Endoc rine Socie ty pract ice guide line as a level of serum 25-OH vitam in D less than 20 ng/mL (1,2) . The Endoc rine Socie ty went on to furth er defin e vitam in D insuf ficie ncy as a level betwe en 21 and 29 ng/mL (2). 1. IOM (Inst itute of Medic ine). 2009. Dieta ry refer ence duncan es for calci um and D. Umair cortez [place]: The [facility]io [facility]al [facility] Press . 2. Shahnaz WU, Lynnette roper [place], Dav off-F jesus i LEMUS, et al. Evalu ation , treat ment, and preve ntion of vitam in D defic iency : an Endoc rine Socie ty clini adrienne pract ice guide line. JCEM. 2010; 96(7) :1911 -30. Not Available [facility] ([facility]) [address], [place], [place], [address], 08/09/2019 09:08:29 08/08/19 20 08/09/2019 CK (crea judi kinas e), total , serum creatine kinase,total 28 U/L 24-173 Not Available [facility] ([facility]) [address], [place], [place], [address], 08/09/2019 09:08:30 08/08/19 20 08/09/2019 magne sium, serum or plasm a magnesium 2.1 mg/dL 1.6-2. 3 Not Available [facility] ([facility]) [address], [place], [place], [address], 08/09/2019 09:08:30 08/08/19 20 08/09/2019 diabe keely patie nt educa tion pdf image . Not Available [facility] ([facility]) [address], [place], [place], [address], 08/09/2019 09:08:31 09/13/19 23 09/11/2022 XR, chest No observ ation record ed. [facility] [address] [place], [address], 09/12/2022 17:00:07 Result Notes None recorded. Problems Name Problem SNOMED Code Status Onset Date Resolution Date Notes Provider Name and Address Organization Details Recorded Time Chronic constipat ion 464970636 Active 2017 Not Available [facility] 3 10:40:39 Insomnia 980654505 Active 2017 Not Available [facility] 3 10:40:39 Neuropath y due to diabetes mellitus 205660792 Active 2017 Not Available [facility] 3 10:40:39 Type 2 diabetes mellitus 62547414 Active Not Available [facility] 3 10:40:39 Hyperlipi demia 79888146 Active Not Available [facility] 3 10:40:40 Gastroeso phageal reflux disease 785223362 Active Not Available [facility] 3 10:40:39 Vitamin D deficienc y 78648705 Active Not Available [facility] 3 10:40:39 Perniciou s anemia 84385375 Active Not Available [facility] 3 10:40:40 Obesity 955022571 Active Not Available [facility] 3 10:40:39 Pain in right knee Active 2017 Not Available [facility] 3 10:40:39 Bilateral knee pain Active 2019 Not Available [facility] 3 10:40:39 Depressiv e disorder 82638809 Active Not Available [facility] 3 10:40:39 Essential hypertens ion 74087826 Active Not Available [facility] 3 10:40:40 Disturban ce in speech 00581798 Active Not Available [facility] 3 10:40:39 Panic attack 065792834 Active Not Available [facility] 3 10:40:39 Constipat ion 29056650 Active Not Available [facility] 3 10:40:39 Forgetful 23798356 Active Not Available [facility] 3 10:40:39 Low back pain 772348212 Active Not Available [facility] 3 10:40:39 Postmenop ausal bleeding 87054831 Active Not Available [facility] 3 10:40:40 Immunizat ion due 599429665 Active Not Available [facility] 3 10:40:39 Adenosarc hunter of uterus 527007944 Active Not Available [facility] 3 10:40:39 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 Procedures Surgical History Date Name Laterality Status Provider Name and Address Organization Details Recorded Time 08/02/19 22 procedure completed Mindy Carballo MA [facility] 06/21/2022 10:37:31 01/28/20 16 Endometrial Biopsy completed Kacy Bauman MD Attn: Accounting,[address] , [place], [address], [facility] 01/28/2016 17:19:51 01/28/20 16 Date of Last Pap Smear completed Bhavya Cabrera MA [facility] 01/28/2016 17:26:10 06/14/19 14 Most Recent Mammogram completed Laurencecameron Quinn [place] - [facility] 01/28/2016 18:19:31 Hernia Repair completed Roberta Nye MA [facility] 06/11/2014 15:59:30 Appendectomy completed Roberta Nye MA [facility] 06/11/2014 15:59:30 Knee Surgery completed Roberta Nye [facility] 06/11/2014 15:59:30 Imaging Results Imaging Date Name Status LastModified by Organiz ation Details LastModified Time 09/11/2022 XR, chest completed [facility] [address] [facility], [place], [address], 09/12/2022 17:00:07 Procedure Notes None recorded. Medical Equipment None Reported. Allergies No known drug allergies Medications Name Sig Start Date Stop Date Status Note LastModified by Organization Details LastModified Time Prescript ion - Renewal 03/14 completed Not Available Not Available Not Available Prescript ion - Prior Authoriza tion Request 06/18 completed One Touch Lancets Not Available Not Available Not Available DME, misc use one twice daily to test blood sugar 06/18 completed Not Available Not Available Not Available losartan 50 mg tablet Take 1 tablet every day by oral route in the morning for 30 days. 03/14 completed Not Available Not Available Not Available latanopro st 0.005 % eye drops INSTILL 1 DROP INTO BOTH EYES EVERY EVENING AT BEDTIME. NEEDS APPOINTM ENT FOR FURTHER REFILLS. active Not Available Not Available No t Available atorvasta tin 40 mg tablet TAKE ONE TABLET BY MOUTH EVERY NIGHT AT BEDTIME TO LOWER CHOLESTE ROL active Not Available Not Available No t Available buspirone 5 mg tablet Take 1 tablet twice a day by oral route after meals for 30 days. active Not Available Not Available No t Available BD Alcohol Swabs active Not Available Not Available Not Available donepezil 5 mg tablet Take 1 tablet every day by oral route at bedtime for 30 days. 03/14 completed Not Available Not Available Not Available polyethyl marcia glycol 3350 17 gram oral powder packet 03/14 completed Not Available Not Available Not Available atorvasta tin 10 mg tablet TAKE 1 TABLET BY MOUTH EVERY DAY IN THE MORNING 2022 active Not Available Not Available Not Avai lable IBU 800 mg tablet take one tablet by mouth three times daily as needed 03/14 completed Not Available Not Available Not Available lidocaine 5 % topical cream active Not Available Not Available Not Available hydrocodo ne 5 mg-acetam inophen 325 mg tablet active Not Available Not Available Not Available Claritin 10 mg tablet Take 1 tablet every day by oral route as directed for 30 days. 2022 active Not Available Not Available Not Avai lable ondansetr on HCl 8 mg tablet 03/14 completed Not Available Not Available Not Available donepezil 10 mg tablet TAKE ONE TABLET BY MOUTH ONCE DAILY active Not Available Not Available No t Available alendrona te 70 mg tablet TAKE ONE TABLET BY MOUTH every WEEK active Not Available Not Available No t Available clonazepa m 0.5 mg tablet Take 1 tablet twice a day by oral route as needed for 30 days. 08/07 completed Not Available Not Available Not Available sertralin e 100 mg tablet 0.5 tab po qd in the morning for 7 . Then Increase to 1 tab daily and maintain 12/27 completed DC it , see if hallucin ations clear up Not Available Not Available Not Available Vitamin B-12 500 mcg tablet Take 1 tablet every day by oral route in the morning. active Not Available Not Available No t Available prochlorp erazine maleate 10 mg tablet Take 1 tablet twice a day by oral route as needed for 4 days. 03/14 completed Not Available Not Available Not Available tramadol 50 mg tablet Take 1 tablet every day by oral route at bedtime for 30 days. 06/21 completed Not Available Not Available Not Available lidocaine -prilocai ne 2.5 %-2.5 % topical cream 03/14 completed Not Available Not Available Not Available fenofibra te micronize d 134 mg capsule TAKE ONE CAPSULE BY MOUTH EVERY DAY 06/21 completed Not Available Not Available Not Available oxycodone -acetamin ophen 5 mg-325 mg tablet 06/18 completed Not Available Not Available Not Available DOK 100 mg capsule TAKE ONE CAPSULE BY MOUTH TWICE A DAY WITH MEALS *MUST MAKE APPOINTM ENT FOR FURTHER REFILLS* 08/07 completed Not Available Not Available Not Available OneTouch Ultra Test strips tests BID 2017 active Not Available Not Available Not Avai lable hydrocodo ne 7.5 mg-acetam inophen 325 mg tablet Take 1 tablet twice a day by oral route as needed for 30 days. 03/14 completed Not Available Not Available Not Available nortripty line 10 mg capsule TAKE ONE CAPSULE BY MOUTH EVERY NIGHT AT BEDTIME *MAY INCREASE TO TWO CAPSULES NEEDED* 10/14 completed hallucin ations per dgtr Not Available Not Available Not Available dexametha sone 4 mg tablet 03/14 completed Not Available Not Available Not Available buspirone 10 mg tablet TAKE 1 TABLET BY MOUTH TWICE DAILY AFTER MEALS* FOLLOW UP WITH DEION MENDOZA IF THIS DOSE CAN'T BE TOLERATE D 06/21 completed Not Available Not Available Not Available promethaz ine 25 mg/mL injection solution 06/21 completed Not Available Not Available Not Available losartan 25 mg tablet TAKE 1 TABLET BY MOUTH EVERY MORNING active Not Available Not Available No t Available gabapenti n 300 mg capsule TAKE TWO CAPSULES THREE TIMES DAILY active Not Available Not Available No t Available mirtazapi ne 15 mg tablet Take one tablet by mouth at bedtime. 09/17 completed Not Available Not Available Not Available ibuprofen 600 mg tablet 03/14 completed Not Available Not Available Not Available polyethyl marcia glycol 3350 17 gram/dose oral powder Take 17 g as needed by oral route as directed . 03/14 completed Not Available Not Available Not Available losartan 100 mg tablet Take 1 tablet every day by oral route in the morning for 30 days. 03/14 completed Not Available Not Available Not Available fluticaso ne propionat e 50 mcg/actua tion nasal spray,srikanth pension 03/14 completed Not Available Not Available Not Available gentamici n 0.1 % topical ointment active Not Available Not Available Not Available oxycodone 5 mg tablet 06/18 completed Not Available Not Available Not Available diabetic supplies, miscellan . active Not Available Not Available Not Available enoxapari n 40 mg/0.4 mL subcutane ous syringe active Not Available Not Available Not Available ezetimibe 10 mg tablet TAKE ONE TABLET BY MOUTH EVERY DAY TO LOWER CHOLESTE ROL active Not Available Not Available No t Available cyclobenz aprine 5 mg tablet Take 1 tablet(s ) as needed by oral route at bedtime for 30 days. 03/14 completed Not Available Not Available Not Available losartan 100 mg-hydroc hlorothia zide 12.5 mg tablet Take 1 tablet(s ) every day by oral route for 30 days. 03/14 completed Not Available Not Available Not Available melatonin active Not Available Not Yancy ilable Not Available Vitamin D 08/11 completed Not Available Not Available Not Available Vitamin D3 active Not Available Not Available Not Available fenofibra te nanocryst allized 145 mg tablet TAKE 1 TABLET BY MOUTH ONCE DAILY active Not Available Not Available No t Available MoviPrep 100 gram-7.5 gram-2.69 1 gram oral powder packet 03/14 completed Not Available Not Available Not Available Calcium 600 + D(3) 600 mg-10 mcg (400 unit) tablet Take 2 tablets every day by oral route as directed for 30 days. 2022 active Not Available Not Available Not Avai lable Prevnar 13 (PF) 0.5 mL intramusc ular syringe To be administ ered by pharmaci st 06/18 completed Not Available Not Available Not Available Linzess 145 mcg capsule TAKE ONE CAPSULE BY MOUTH EVERY DAY FOR CONSTIPA TION active Not Available Not Available No t Available memantine 14 mg capsule sprinkle, extended release 24hr 06/21 completed Not Available Not Available Not Available Pennsaid 20 mg/gram/a ctuation (2 %) topical soln in metered-d ose pump APPLY 2 PUMPS (40 MG) TO THE AFFECTED AREA TOPICAL ROUTE 2 TIMES PER DAY 2020 active Not Available Not Available Not Avai lable Linzess 72 mcg capsule TAKE ONE CAPSULE BY MOUTH ONCE DAILY 08/11 completed Not Available Not Available Not Available Vitals Date Recorded Body height Body mass index (BMI) Body weight Oxygen saturation Oxygen saturation in Arterial blood by Pulse oximetry Heart rate Body temperature Systolic blood pressure Diastolic blood pressure Provider Name and Address Organization Details Last Updated DateTime 8 172.72 cm 28.1 kg/m2 52018.8 g 97 % 97 % 81 /min 98.2 [degF] 112 mm[Hg] 70 mm[Hg] Kailey Main MA [facility] 8 10:00:44 Date Recorded Body height Body mass index (BMI) Body weight Oxygen saturation Oxygen saturation in Arterial blood by Pulse oximetry Heart rate Body temperature Systolic blood pressure Diastolic blood pressure Provider Name and Address Organization Details Last Updated DateTime 8 172.72 cm 28.6 kg/m2 40780.6 5 g 96 % 96 % 94 /min 98.3 [degF] 116 mm[Hg] 80 mm[Hg] Kailey Main MA [facility] 8 17:34:36 Date Recorded Body weight Oxygen saturation Oxygen saturation in Arterial blood by Pulse oximetry Heart rate Body temperature Systolic blood pressure Diastolic blood pressure Provider Name and Address Organization Details Last Updated DateTime 0 17169.2 7 g 97 % 97 % 85 /min 98.4 [degF] 122 mm[Hg] 78 mm[Hg] Mindy Carballo MA [facility] 0 09:58:05 Date Recorded Body weight Body mass index (BMI) Body height Oxygen saturation Oxygen saturation in Arterial blood by Pulse oximetry Heart rate Systolic blood pressure Diastolic blood pressure Provider Name and Address Organization Details Last Updated DateTime 3 20785.5 g 30.6 kg/m2 172.72 cm 98 % 98 % 79 /min 146 mm[Hg] 82 mm[Hg] Mindy Carballo MA [facility] 3 10:40:02 Social History Question Answer Notes LastModified by Organizat ion Details LastModified Time Tobacco Smoking Status Never Smoker DESTIN Georges, [facility] 06/11/2014 15:59:30 Do You Have An Advance Directive? No Information not available 06/11/2014 What Is Your Level Of Alcohol Consumption? None Information not available 06/11/2014 Are You Blind Or Do You Have Difficulty Seeing? No Information not available 06/11/2014 Is Blood Transfusion Acceptable In An Emergency? Yes Information not available 01/28/2016 What Is Your Level Of Caffeine Consumption? Occasional Information not available 06/21/2022 How Much Tobacco Do You Chew? None [email or web address] Information not available 01/28/2016 Are You Currently Employed? No Information not available 01/28/2016 Are You Deaf Or Do You Have Serious Difficulty Hearing? No Information not available 06/11/2014 What Type Of Diet Are You Following? REGULAR Information not available 06/11/2014 Which Illicit Or Recreational Drugs Have You Used? 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 No Information not available 06/11/2014 Hard Of Hearing Or Deaf In One Or Both Ears? No Information not available 06/11/2014 Legally Blind In One Or Both Eyes? No Information no t available 06/11/2014 Live Alone Or With Others? With Others Information not available 01/28/2016 Marital Status Informatio n not available 06/11/2014 What Was The Date Of Your Most Recent Tobacco Screening? 06/21/2022 Information not available 06/21/2022 How Many Children Do You Have? 3 Information not available 01/28/2016 Performs Monthly Self-breast Exam? No Information no t available 06/11/2014 What Is Your Relationship Status? Information not available 01/28/2016 Seat Belts Used Routinely Yes Information not available 06/11/2014 Are You Sexually Active? No Information not available 01/28/2016 Smoke Alarm In Home Yes Information not available 06/11/2014 Do You Have Smoke And Carbon Monoxide Detectors In Your Home? Yes Information not available 06/21/2022 How Much Tobacco Do You Smoke? No Information not available 06/11/2014 General Stress Level Medium Information not available 06/11/2014 Do You Use Any Illicit Or Recreational Drugs? No Information not available 06/21/2022 Do You Use Sunscreen Routinely? Yes Information not available 06/11/2014 Sex: Unknown Functional Status Question Answer Note LastModified by Organization D etails LastModified Time Do you have difficulty walking or climbing stairs? No Information not available 06/11/2014 Do you have difficulty doing errands alone? No Information not available 06/11/2014 Do you have difficulty dressing or bathing? No Information not available 06/11/2014 What is your exercise level? None Information not available 06/11/2014 Mental Status Question Answer Note LastModified by Organization D etails LastModified Time Do you have difficulty concentrating, remembering or making decisions? Yes Information no t available 06/11/2014 Family History Relationship Description Onset Age of this Age Resolved Age Notes LastModified by Organization Details LastModified Time Mother Diabetes mellitus [email or web address] Not available 02/07 09:51:14 Mother Cerebrovascu lar accident [email or web address] Not available 09:51:14 Sister Diabetes mellitus [email or web address] Not available 02/07 09:51:14 Sister Cerebrovascu lar accident [email or web address] Not available 09:51:14 Brother Cerebrovascu lar accident [email or web address] Not available 09:51:14 Medical History Condition Response Diabetes Y High Blood Pressure Y Depression Y Gynecological History Statement/Question Response On BCP's at Conception? N STIs/STDs N HPV Vaccine N Most Recent Mammogram 06/14/2013 Age at Menarche 12 Current Control Method Menopause Age at First Child 22 If Post Menopausal, Age at Menopause Sexually Active? N Menses Monthly N Date of Last Pap Smear 01/28/2016 Sexual Problems? N Desired Control Method N/A Obstetrics History GPAL:G 3 P 0 0 0 3 Type Value Multiple Births 0 Full Term 0 Induced 0 Spontaneous 0 Premature 0 Living 3 Ectopics 0 Total 3 Immunizations Vaccine Type Date Status Note Provider Nam e and Address Organization Details Recorded Time influenza, unspecified formulation 2 completed Not Available [facility] 11/14/2022 10:40:40 Influenza, split virus, quadrivalent, preservative 6 completed Not Available [facility] 05/31/2019 02:33:00 Influenza, split virus, quadrivalent, preservative 7 completed Not Available [facility] 05/31/2019 02:49:07 Tdap 5 completed Not Available [facility] 05/31/2019 02:44:52 Influenza, split virus, quadrivalent, preservative 5 completed Not Available [facility] 05/31/2019 02:50:25 Past Encounters Encounter ID Performer Location Encounter Start Date Encounter Closed Date Diagnosis/Indication Diagnosis SNOMED-CT Code Diagnosis ICD10 Code Diagnosis Note [id number] DESTIN Hopkins (Adult Med) [address] [place] [address] [id number] 06/11/2014 15:14:32 06/11/2014 16:43:31 Adult health examination 179209254 Type 2 rosa betes mellitus 85782453 Hyperlipidemia 92508744 Gastroesop hageal reflux disease 059434292 Vitamin D deficiency 72919214 Pernicious anemia 39548077 Obesity 756472401 [id number] FAM Diaz (Adult Med) [address] [place] [address] [id number] 09/09/2014 11:58:53 09/09/2014 12:44:07 Pernicious anemia 96434238 Obesity 557492206 Type 2 rosa betes mellitus 51395609 Hyperlipidemia 13752107 Gastroesop hageal reflux disease 584865179 Vitamin D deficiency 59200432 Adult [facility] th examination [id number] DESTIN Hopkins (Adult Med) [address] [place] [address] [id number] 01/08/2015 13:36:06 01/08/2015 14:43:54 Adult health examination 637544579 Gastroesop hageal reflux disease 271889323 Hyperlipidemia 87534227 Obesity 076456950 Pernicious anemia 02976193 Type 2 rosa betes mellitus 47673478 Vitamin D deficiency 76645728 [id number] FAM Diaz (Adult Med) [address] [place] [address] [id number] 03/12/2015 14:53:31 03/12/2015 15:17:43 Administration of influenza vaccine 63019096 Z23 Depressive disorder 3548 9007 F32.9 Gastroesop hageal reflux disease 922204104 K21.9 Hyperlipidemia 94923213 E78.5 Obesity 249795026 E66.9 Pernicious anemia 820566 09 D51.0 Type 2 rosa betes mellitus 69884527 E11.9 Vitamin D deficiency 347 51472 E55.9 [id number] FAM Diaz (Adult Med) [address] [place] [address] [id number] 09/10/2015 14:48:58 09/10/2015 15:34:40 Pernicious anemia 53033965 D51.0 Type 2 rosa betes mellitus 11852498 E11.9 Vitamin D deficiency 347 32870 E55.9 Obesity 538310065 E66.9 Hyperlipidemia 48092031 E78.5 Gastroesop hageal reflux disease 915538042 K21.9 Depressive disorder 3548 9007 F32.9 Essential hypertension 73648281 I10 Disturbance in speech 29 896059 R47.9 [id number] FAM Diaz (Adult Med) [address] [place] [address] [id number] 10/12/2015 10:44:56 10/12/2015 11:43:21 Panic attack 303115187 F41.0 Depressive disorder 3548 9007 F32.9 Essential hypertension 57847199 I10 Gastroesop hageal reflux disease 894512097 K21.9 Hyperlipidemia 38598464 E78.5 Obesity 438279697 E66.9 Pernicious anemia 640121 09 D51.0 Type 2 rosa betes mellitus 10008529 E11.9 Vitamin D deficiency 347 86509 E55.9 [id number] FAM Diaz (Adult Med) [address] [place] [address] [id number] 11/09/2015 10:15:37 11/09/2015 11:10:12 Panic attack 196278130 F41.0 Essential hypertension 91347876 I10 Gastroesop hageal reflux disease 412926585 K21.9 Hyperlipidemia 75585929 E78.5 Obesity 878894182 E66.9 Type 2 rosa betes mellitus 84741912 E11.9 Vitamin D deficiency 347 50266 E55.9 Constipation 05775470 K5 9.00 Forgetful 37542062 R41.3 [id number] [facility] (Adult Med) [address] [place] [address] [id number] 01/04/2016 09:56:52 01/04/2016 10:41:07 Essential hypertension 59658677 I10 Gastroesop hageal reflux disease [id number] K21.9 Hyperlipidemia 74534769 E78.5 Obesity 075484469 E66.9 Panic attack 935493982 F 41.0 Pernicious anemia 021904 09 D51.0 Type 2 rosa betes mellitus 22010538 E11.9 Vitamin D deficiency 347 04165 E55.9 Low back pain 799927747 M54.5 [id number] DESTIN Franklin [facility] (RESEARCH ASSOCIATE PROFESSOR) [address] [place] [address] [phone] 0 01/28/2016 14:46:01 01/28/2016 17:33:17 Gynecologic examination 75319278 Z01.411 Screening mammography 24 781629 Z12.31 Postmenopa usal bleeding 88146382 N95.0 Positive s creening for depression on PHQ-9 (Patient Health Questionnaire 9) [id number] 25780 Z13.89 Psychiatri c counseling referral Immunization due 5405501 08 Z28.3 counseled about types of immunizati ons that she need to get from PCP - like herpes zoster, Pneumococc al vaccine, influenza vaccine, DtaP, varicella and hepatitis B vaccines -- etc [id number] Roel Cordon HC (RESEARCH ASSOCIATE PROFESSOR) [address] [place] [address] [phone] 0 02/07/2016 10:01:30 02/08/2016 09:55:45 Endometrial carcinoma 331221478 C54.1 GYNECOLOGI C ONCOLOGY REFERRAL - ADENOSARCO MA WITH RHABDOMYOS ARCOMATOUS DIFFERENTI ATION on office endometria l biopsy specimen done for postmenopa usal bleeding. Adenosarco ma of uterus 176608938 C55 Postmenopa usal bleeding 26059940 N95.0 [id number] FAM Diaz (Adult Med) [address] [place] [address] [phone] 0 04/25/2016 15:49:51 04/25/2016 16:58:30 Constipation 73377474 K59.00 Panic attack 806848800 F 41.0 Gastroesop hageal reflux disease 750811519 K21.9 Endometrial carcinoma 25 1027143 C54.1 Low back pain 126557580 M54.5 Vitamin D deficiency 347 04447 E55.9 Depressive disorder 3548 9007 F32.9 Obesity 224701201 E66.9 Type 2 rosa betes mellitus 32041003 E11.9 Adenosarco ma of uterus 700762813 C55 Forgetful 29612804 R41.3 Hyperlipidemia 05906650 E78.5 Essential hypertension 13080488 I10 Pernicious anemia 201297 09 D51.0 Administra tion of influenza vaccine 81235175 Z23 [id number] FAM Diaz (Adult Med) [address] [place] [address] [id number] 0 06/27/2016 13:46:40 06/27/2016 16:24:59 Type 2 diabetes mellitus 14893826 E11.9 Low back pain 549669640 M54.5 [id number] FAM Diaz (Adult Med) [address] [place] [address] [id number] 08/22/2016 10:11:54 08/22/2016 11:07:27 Low back pain 259312536 M54.5 Type 2 rosa betes mellitus 18642752 E11.9 Panic attack 644561398 F 41.0 [id number] FAM Diaz (Adult Med) [address] [place] [address] [id number] 0 12/20/2016 10:46:26 12/20/2016 11:19:52 Constipation 86016064 K59.00 Forgetful 23771155 R41.3 Pernicious anemia 713831 09 D51.0 Essential hypertension 51724050 I10 Hyperlipidemia 33588943 E78.5 Type 2 rosa betes mellitus 91641111 E11.9 Obesity 439833343 E66.9 Vitamin D deficiency 347 33659 E55.9 Low back pain 507804911 M54.5 Gastroesop hageal reflux disease 214646020 K21.9 Panic attack 539339835 F 41.0 [id number] FAM Diaz (Adult Med) [address] [place] [address] [id number] 0 02/19/2017 11:03:47 02/19/2017 11:54:37 Type 2 diabetes mellitus 32522546 E11.9 Depressive disorder 3548 9007 F32.9 Vitamin D deficiency 347 75438 E55.9 Low back pain 607533412 M54.5 Gastroesop hageal reflux disease 168357273 K21.9 Panic attack 990550296 F 41.0 Administra tion of influenza vaccine 29869573 Z23 Pernicious anemia 549438 09 D51.0 Essential hypertension 24431869 I10 Hyperlipidemia 38824107 E78.5 Forgetful 17136800 R41.3 [id number] FAM Diaz (Adult Med) [address] [place] [address] [phone] 0 04/16/2017 10:55:15 04/16/2017 12:12:45 Gastroesophageal reflux disease 542559393 K21.9 Vitamin D deficiency 347 70326 E55.9 Type 2 rosa betes mellitus 97370492 E11.9 Essential hypertension 98063484 I10 Hyperlipidemia 76987103 E78.5 Pernicious anemia 386326 09 D51.0 Forgetful 74997747 R41.3 Obesity 138095072 E66.9 Panic attack 183093509 F 41.0 Low back pain 804883820 M54.5 [id number] FAM Diaz (Adult Med) [address] [place] [address] [id number] 0 06/18/2017 10:52:57 06/18/2017 11:59:58 Forgetful 89995254 R41.3 Hyperlipidemia 61202684 E78.5 Essential hypertension 71995512 I10 Type 2 rosa betes mellitus 06470234 E11.9 [id number] FAM Diaz (Adult Med) [address] [place] [address] [id number] 0 09/17/2017 09:38:37 09/17/2017 10:43:08 Panic attack 483542515 F41.0 Constipation 89361067 K5 9.00 Type 2 rosa betes mellitus 21641495 E11.9 Gastroesop hageal reflux disease 743116577 K21.9 Depressive disorder 3548 9007 F32.9 Hyperlipidemia 11634985 E78.5 Insomnia 809273867 G47.0 0 Obesity 886176760 E66.9 Neuropathy due to diabetes mellitus 061412790 E11.40 Vitamin D deficiency 347 19424 E55.9 [id number] FAM Diaz (Adult Med) [address] [place] [address] [id number] 0 11/08/2017 09:11:19 11/08/2017 10:11:20 Hyperlipidemia 75717899 E78.5 Essential hypertension 47756516 I10 Pernicious anemia 957634 09 D51.0 Type 2 rosa betes mellitus 68871191 E11.9 Depressive disorder 3548 9007 F32.9 Vitamin D deficiency 347 59384 E55.9 Neuropathy due to diabetes mellitus 398477243 E11.40 Insomnia 196854229 G47.0 0 [id number] FAM Diaz (Adult Med) [address] [place] [address] [id number] 0 12/27/2017 16:04:54 01/02/2018 09:31:47 Pain in right knee 8982396108 05394 M25.561 Neuropathy due to diabetes mellitus 918883703 E11.40 Insomnia 794191239 G47.0 0 Type 2 rosa betes mellitus 48915098 E11.9 Hyperlipidemia 17979296 E78.5 Essential hypertension 21473320 I10 Pernicious anemia 335054 09 D51.0 Gastroesop hageal reflux disease 670811073 K21.9 [id number] FAM Diaz (Adult Med) [address] [place] [address] [id number] 0 08/08/2019 09:25:30 08/11/2019 11:54:50 Essential hypertension 22370121 I10 Gastroesop hageal reflux disease 443021416 K21.9 Hyperlipidemia 97034668 E78.5 Insomnia 175346872 G47.0 0 Low back pain 688243883 M54.5 Obesity 491800370 E66.9 Type 2 rosa betes mellitus 73808608 E11.9 Vitamin D deficiency 347 16253 E55.9 Adenosarco ma of uterus 762018989 C55 Neuropathy due to diabetes mellitus 779512261 E11.40 Panic attack 360467672 F 41.0 Depressive disorder 3548 9007 F32.9 Forgetful 76251589 R41.3 Bilateral knee pain 1187 883914 1327186 M25.561 M25.562 right knee worse Chronic constipation 236 751367 K59.04 [id number] FAM Diaz (Adult Med) [address] [place] [address] [id number] 0 08/11/2020 08:15:56 08/11/2020 12:48:25 Low back pain 713700536 M54.5 Type 2 rosa betes mellitus 26900522 E11.9 Pernicious anemia 356499 09 D51.0 Obesity 245345015 E66.9 Insomnia 798233957 G47.0 0 Forgetful 66028329 R41.3 Chronic constipation 236 205473 K59.04 Bilateral knee pain 1187 652835 5530207 M25.561 M25.562 right knee worse [id number] DESTIN Armenta (Adult Med) [address] [place] [address] [id number] 0 06/21/2022 10:08:28 06/23/2022 15:03:53 Dyslipidemia 080747112 E78.5 Low animal fat diet. on fenofibrat e and zetia, Seasonal allergy 5371873 04 J30.2 Will refill claritin. Chronic anxiety 75164857 9 F41.9 Will be in December, may call in in July when new psychiatri st will come in accordingl y. Senile osteoporosis 1804 0001 M81.0 Will refil med. Hyperlipidemia 31843569 E78.5 Low animal fat diet. Neuropathy due to diabetes mellitus 875768026 E13.49 Refill med. She is not sugar diabetes. Constipation 47839954 K5 9.00 Refill med. Essential hypertension 15646906 I10 06-21-2022 , BP is 146/82, will refill [id number] mg /day. low salt diet, avoid OTC decongesta nt and NSAID such as ibuprofen and naproxen. SARS-CoV-2 mRNA vaccine declined 9331025606 Z28.21 Refused 06-21-2022 . Administra tion of pneumococcal vaccine 58888410 Z23 Refused 06-21-2022 . Health Concerns Section Related Observation LastModified by Organization Detai ls LastModified Time None Recorded Concern Status LastModified by Organization Details LastModified Time None Recorded Advance Directives Directive N: Payers Encounter Date Sequence Insurance Name Policy Number Policy Ku Covered Member ID Ku Member ID Guarantor Name 11/08/2017 1 [place] Venkatesh Hernandez Polach [id number] Venkatesh Polach 11/08/2017 2 [place] OR MEDICARE REPLACEMENT PRIMARY) Venkatesh Polach [id number] Venkatesh Polach 12/27/2017 1 [place] Venkatesh Hernandez Polach [id number] Venkatesh Polach 12/27/2017 2 [place] REPLACEMENT [place]) Venkatesh Polach [id number] Venkatesh Polach 08/08/2019 2 [place]PLACEMENT PRIMARY) Venkatesh Polach [id number] Venkatesh Polach 08/08/2019 1 [place] Venkatesh Hernandez Polach [id number] Venkatesh Polach 08/11/2020 2 [place] OR [place]IC[place] REPLACEMENT PRIMARY) Venkatesh Polach [id number] Venkatesh Polach 08/11/2020 1 [place] Venkatesh Hernandez Polach [id number] Venkatesh Polach 06/21/2022 2 [place] OR [place]IC[place] REPLACEMENT [place]IMARY) Venkatesh Polach [id number] Venkatesh Polach 06/21/2022 1 [place] Venkatesh Hernandez Polach [id number] Venkatesh Polach Notes Date Note Type Note Provider Name and Address Organization Details Recorded Time 11/08/2017 text/html doing well , better on sertraline ... Payam Mendoza PA-C Attn: Accounting,[address] [facility], [place], [address], [facility] 11/09/2017 13:20:11 12/27/2017 text/html right knee hurts , swells Payam Mendoza PA-C Attn: Accounting,[address] [facility], [place], [address], [facility] 12/27/2017 20:42:40 08/08/2019 text/html memory is worse, was in to see the oncologist at [facility] sometime last year ..... cannot remember , kwan Payam Mendoza PA-C Attn: Accounting,[address] [facility], [place], [address], [facility] 08/10/2019 19:24:50 08/11/2020 text/html knee pain , righ t ..pennsaid not helping Payam Mendoza PA-C Attn: Accounting,[address] [facility], [place], [address], [facility] 08/11/2020 16:55:14 06/21/2022 text/html Office visit, NKDA, came with living in older sister and acute care surgeon daughter. not demented, knows the time , day, and person. dose not wants to come to doctor office despite living in the [place]. Will refill med bot not all med which she dose not need. Also will refer to behavioral health clinic due to chronic anxiety , agitated after buspirone was stopped . On 08-08-2019, her A1c was 5.4%, no any med for DH prescribed, fasting blood sugar was 98 on 08-08-2019. So she is not sugar diabetes. Mindy Carballo MA null, [place] [facility] 06/21/2022 12:18:52 OBGyn Episode Ob Episode Information Episode Created Date Number of Fetuses Patient Bloodtype Patient rh Status Prepregnancy Weight lbs Domestic Partner Domestic Partner Phone Father Name Specimen Preparation Assistant Status 02/01/20 16 1 CLOSED Fetus Data First Name Last Name Admitted to NICU Weight (g) Sex Living Outcome Pediatric Complications Fetus ID Race Codes Race Delivery Type 4082.32 8 F Full Term [id number] Vaginal Brian Calculation Initial Brian Date Initial Exam Date Initial Exam Provider Initial Ultrasound Date Last Menstrual Period Date Ultra Sound Weeks Gestation 0 Eighteen To Twenty Week Brian Update Ultra Sound Date Fundal Height At Umbil Quickening Date Ultra Sound Latest Weeks Gestation Final Brian Confirmed By Final Brian Confirmed Date Final Brian Date Ultra Sound Latest Days Gestation 0 0 Menstrual History Last Menstrual Date Menses Monthly On Bcp Conception Prior Menses Frequency Hcg Plus Date Menarche Onset Age Delivery Information Delivery Date Delivery Type Labor Anesthesia Weeks Gestation Incision Type Labor Labor Length Hrs Delivered By Post Complications Tubal Sterilization Discharge Date Comments 7 None 40 false Discharge Information Feeding Method Contraceptive Method Maternal HG B and HCT Levels Ob Episode Information Episode Created Date Number of Fetuses Patient Bloodtype Patient rh Status Prepregnancy Weight lbs Domestic Partner Domestic Partner Phone Father Name Specimen Preparation Assistant Status 02/01/20 16 1 CLOSED Fetus Data First Name Last Name Admitted to NICU Weight (g) Sex Living Outcome Pediatric Complications Fetus ID Race Codes Race Delivery Type 3628.73 6 M Full Term 28320 Vaginal Brian Calculation Initial Brian Date Initial Exam Date Initial Exam Provider Initial Ultrasound Date Last Menstrual Period Date Ultra Sound Weeks Gestation 0 Eighteen To Twenty Week Brian Update Ultra Sound Date Fundal Height At Umbil Quickening Date Ultra Sound Latest Weeks Gestation Final Brian Confirmed By Final Brian Confirmed Date Final Brian Date Ultra Sound Latest Days Gestation 0 0 Menstrual History Last Menstrual Date Menses Monthly On Bcp Conception Prior Menses Frequency Hcg Plus Date Menarche Onset Age Delivery Information Delivery Date Delivery Type Labor Anesthesia Weeks Gestation Incision Type Labor Labor Length Hrs Delivered By Post Complications Tubal Sterilization Discharge Date Comments 2 None 40 false Discharge Information Feeding Method Contraceptive Method Maternal HG B and HCT Levels Ob Episode Information Episode Created Date Number of Fetuses Patient Bloodtype Patient rh Status Prepregnancy Weight lbs Domestic Partner Domestic Partner Phone Father Name Specimen Preparation Assistant Status 02/01/20 16 1 CLOSED Fetus Data First Name Last Name Admitted to NICU Weight (g) Sex Living Outcome Pediatric Complications Fetus ID Race Codes Race Delivery Type 4082.32 8 F Full Term 87393 Vaginal Brian Calculation Initial Brian Date Initial Exam Date Initial Exam Provider Initial Ultrasound Date Last Menstrual Period Date Ultra Sound Weeks Gestation 0 Eighteen To Twenty Week Brian Update Ultra Sound Date Fundal Height At Umbil Quickening Date Ultra Sound Latest Weeks Gestation Final Brian Confirmed By Final Brian Confirmed Date Final Brian Date Ultra Sound Latest Days Gestation 0 0 Menstrual History Last Menstrual Date Menses Monthly On Bcp Conception Prior Menses Frequency Hcg Plus Date Menarche Onset Age Delivery Information Delivery Date Delivery Type Labor Anesthesia Weeks Gestation Incision Type Labor Labor Length Hrs Delivered By Post Complications Tubal Sterilization Discharge Date Comments 6 None 40 false Discharge Information Feeding Method Contraceptive Method Maternal HG B and HCT Levels
--- OUTSIDE RECORDS SUMMARY | 2024-06-26 17:29 | XMS_ITS | Data Portability ---
Author Organization [facility] [employer], Main Office Address [address] [place] [address] Assessment No assessment recorded. Plan of Treatment Reminders Order Date Submit Date Provider Last Modified By Organization Details Last Modified Time Details Appointments None recorded. Lab lipid panel, serum 2023 [facility], [address] [place], [address], 4 07:45:41 CMP, serum or plasma 2023 024 [facility], [address] [place], [address], 4 07:45:41 CBC w/ auto diff 2023 024 [facility], [address] [place], [address], 4 07:45:41 TSH, serum or plasma 2023 024 [facility], [address] [place], [address], 4 07:45:42 T4, free, serum 2023 024 [facility], [address] [place], [address], 4 07:45:42 vitamin D, 25-hydroxy , total, serum 2023 024 [facility], [address] [place], [address], 4 07:45:41 Referral [facility] facility referral 2023 024 [facility], [address] [place], [address], 4 07:46:23 occupation al therapist referral - eval and treat 2023 024 sg Not available 4 07:46:23 Procedures None recorded. Surgeries None recorded. Imaging None recorded. Medication Orders losartan 25 mg tablet 2023 [facility], [address] [place] [address], [id number], 4 14:36:59 atorvastat in 10 mg tablet 2023 024 [facility], [address] [place] [address], [id number], 4 14:36:58 fenofibrat e nanocrysta llized 145 mg tablet 2023 024 [facility], [address] [place] [address], [id number], 4 14:36:58 Multivitam in 50 Plus tablet 2023 024 [facility], [address] [place] [address], [id number], 4 16:16:14 alendronat e 70 mg tablet 2023 024 [facility], [address] [place] [address], [id number], 4 14:36:57 gabapentin 300 mg capsule 2023 024 [facility], [address] [place] [address], [id number], 04/12/202 4 14:36:56 Patient TargetsNo targets recorded. Patient Instructions Encounter Date Encounter Id Patient Instructions Last Modified By Organization Details Last Modified Time 08/21/2023 [id number] physical therapy * - eval and treat sg Not available 02/25/2024 07:46:35 care home facility referral PT/OT eval and treat Obtain labs Regular diet [email or web address] Not available 08/21/2023 14:47:57 Reason for Referral Snf Facility Ref erral for Osteopenia Referring Physician: Honey Brown, Internal Medicine, Encounter Date: 08/21/2023 Occupational Therapist Refer ral for Osteopenia eval and treat Referring Physician: Honey Brown Internal Medicine, Encounter Date: 08/21/2023 Problems Name Problem SNOMED Code Status Onset Date Resolution Date Notes Provider Name and Address Organization Details Recorded Time Osteopenia 570686423 Active 2023 On medication s unsure of diagnosis Honey Brown APRN [address], [place], [address], [employer] 4 14:30:11 Essential hypertensi on 13331409 Active 2023 Honey Brown APRN [address] [place] [address], [address], [employer] 4 14:30:04 Hyperlipid emia 25595199 Active 2023 Honey Brown APRN [address], [address] [place] [address], [address], [employer] 4 14:30:07 Joint pain 87951454 Active 2023 Honey Brown APRN [address], [address], [place], [address], [employer] 4 14:38:09 Problem Notes None recorded. Procedures Surgical History Date Name Laterality Status Provider Name and Address Organization Details Recorded Time total knee replacement completed Macie Fox MA [employer] 08/21/2023 14:22:56 hysterectomy completed Macie Fox MA [place] [facility] [facility] [employer] 08/21/2023 14:23:14 Imaging Results None recorded. Procedure Notes None recorded. Medical Equipment None Reported. Allergies No known drug allergies Medications Name Sig Start Date Stop Date Status Note LastModified by Organization Details LastModified Time atorvastati n 10 mg tablet TAKE 1 TABLET BY MOUTH ONCE DAILY TO LOWER CHOLESTER OL active Not Available Not Available No t Available alendronate 70 mg tablet TAKE ONE TABLET BY MOUTH EVERY WEEK DIRECTED active Not Available Not Available No t Available ketorolac 0.5 % eye drops INSERT ONE DROP IN THE AFFECTED EYE THREE TIMES DAILY STARTING TWO DAYS BEFORE surgery, continue FOR TWO WEEKS AFTER 08/20 completed Not Available Not Available Not Available cephalexin 500 mg capsule TAKE ONE CAPSULE BY MOUTH EVERY 8 HOURS FOR 7 DAYS 08/20 completed Not Available Not Available Not Available losartan 25 mg tablet TAKE 1 TABLET BY MOUTH ONCE DAILY FOR BLOOD PRESSURE active Not Available Not Available No t Available gabapentin 300 mg capsule TAKE ONE CAPSULE BY MOUTH THREE TIMES DAILY active Not Available Not Available No t Available ezetimibe 10 mg tablet TAKE ONE TABLET BY MOUTH EVERY DAY TO LOWER CHOLESTER OL 08/20 completed Not Available Not Available Not Available Multivitami n 50 Plus tablet Take 1 tablet every day by oral route as directed, for supplemen t. 2023 active Not Available Not Available Not Avai lable fenofibrate nanocrystal lized 145 mg tablet TAKE ONE TABLET BY MOUTH EVERY DAY FOR TRIGLYCER IDES active Not Available Not Available No t Available Linzess 145 mcg capsule TAKE ONE CAPSULE BY MOUTH EVERY DAY FOR CONSTIPAT ION 08/20 completed Not Available Not Available Not Available Vitals Date Recorded Body height Body mass index (BMI) Body weight Body temperature Heart rate Oxygen saturation Oxygen saturation in Arterial blood by Pulse oximetry Systolic blood pressure Diastolic blood pressure Provider Name and Address Organization Details Last Updated DateTime 4 160.02 cm 40.7 kg/m2 194046. 25 g 98.3 [degF] 90 /min 99 % 99 % 144 mm[Hg] 74 mm[Hg] Macie Fox MA [place] - [facility] [employer] 14:14:36 Social History Question Answer Notes LastModified by Organization Details LastModified Time Tobacco Smoking Status Never Smoker DESTIN Hayes, [place] - [facility] 08/21/2023 14:21:05 What Is Your Level Of Alcohol Consumption? None Information not available 08/21/2023 What Is Your Level Of Caffeine Consumption? Moderate Information not available 08/21/2023 In The 14 Days Before Symptom Onset, Have You Had Close Contact With A Laboratory-confi rmed COVID-19 While That Case Was Ill? No Information not available 08/21/2023 In The 14 Days Before Symptom Onset, Have You Had Close Contact With A Person Who Is Under Investigation For COVID-19 While That Person Was Ill? No Information not available 08/21/2023 Are You Currently Employed? No Information not available 08/21/2023 What Type Of Diet Are You Following? REGULAR Information not available 08/21/2023 Where Do You Live? SingleLevelHouse Information not available 08/21/2023 What Was The Date Of Your Most Recent Tobacco Screening? 08/21/2023 Information not available 08/21/2023 How Many Children Do You Have? 3 Information not available 08/21/2023 Do You Have Any Pets? No Information not available 08/21/2023 What Is Your Relationship Status? Information not available 08/21/2023 Do You Use Your Seat Belt Or Car Seat Routinely? Yes Information not available 08/21/2023 Are You Sexually Active? No Information not available 08/21/2023 Do You Have Smoke And Carbon Monoxide Detectors In Your Home? Yes Information not available 08/21/2023 Are You Passively Exposed To Smoke? No Information not available 08/21/2023 Are There Any Smokers In Your House? No Information not available 08/21/2023 Do You Feel Stressed (tense, Restless, Nervous, Or Anxious, Or Unable To Sleep At Night)? [id number] Information not available 08/21/2023 Do You Use Any Illicit Or Recreational Drugs? No Information not available 08/21/2023 Do You Use Sunscreen Routinely? No Doesn't Go Outside Information not available 08/21/2023 Have You Recently Traveled Abroad? No Information not available 08/21/2023 Do You Have Any Dietary Restrictions? No Information not available 08/21/2023 Do You Or Have You Ever Used Any Other Forms Of Tobacco Or Nicotine? No Information not available 08/21/2023 Sex: Unknown Functional Status Question Answer Note LastModified by Organization D etails LastModified Time What is your exercise level? None Information not available 08/21/2023 Mental Status None recorded. Family History Nothing Reported. Medical History No medical history recorded. Gynecological HistoryNo gynecological history recorded. Obstetrics History GPAL:G 0 P 0 0 0 0 Immunizations Vaccine Type Date Status Note Provider Nam e and Address Organization Details Recorded Time Influenza, split virus, quadrivalent, preservative 7 completed JANELL Man[address], [place], [address], [employer] 09/18/2023 14:11:36 Influenza, split virus, quadrivalent, preservative [address], [place], [address], [employer] 09/18/2023 14:11:36 Influenza, split virus, quadrivalent, preservative 6 [address], [address], [place], [address], [employer] 09/18/2023 14:11:36 influenza, unspecified formulation 2 completed JANELL [address], [address], [place], [address], [employer] 09/18/2023 14:11:36 Tdap [address], [place], [address], [employer] 09/18/2023 14:11:36 Past Encounters Encounter ID Performer Location Encounter Start Date Encounter Closed Date Diagnosis/Indication Diagnosis SNOMED-CT Code Diagnosis ICD10 Code Diagnosis Note [id number] Honey Brown APRN [facility] [address] [place] [address] 08/21/2023 13:50:04 08/21/2023 14:52:35 Essential hypertension 04936883 I10 Hyperlipidemia 09178202 E78.5 Osteopenia 948056759 M85 .80 Health Concerns Section Related Observation LastModified by Organization Detai ls LastModified Time None Recorded Concern Status LastModified by Organization Details LastModified Time None Recorded Advance Directives Directive None Recorded Payers Encounter Date Sequence Insurance Name Policy Number Policy Ku Covered Member ID Ku Member ID Guarantor Name 08/21/2023 2 [place] [employer] Venkatesh Hernandez Renae [id number] Venkatesh Hernandez Renae 08/21/2023 1 [place] Venkatesh Hernandez Renae [id number] Venkatesh Hernandez Renae Notes Date Note Type Note Provider Name and Address Organization Details Recorded Time 08/21/2023 text/html Venkatesh presents t brenda to establish care as a new patient. Her daughter is here with her. The daughter states that patient is having increased difficulty at home. She currently lives with her disabled elderly sister. Her daughter comes in daily to help with medications and meals. They were denied homemaker services. Neither sister is able to care for themselves or each other. There is nobody else to help with care. Daughter is asking for a referral to admit to [facility] for longterm placement. Honey Brown APRN [address], [address], [place], [address], [facility] 08/21/2023 14:49:27 OBGyn Episode No OBEpisode recorded.
[2024-06-26] MEDS: IPRATROPIUM 0.5 MG/ALBUTEROL SULFATE 2.5 MG AMPUL.NEB 3 ML INHALATION (17:34)
[2024-06-26] MEDS: ACETAMINOPHEN 500 MG TABLET 1000 MG PO (17:36)
[2024-06-26 17:59] LABS: Influenza A QL RT-PCR Positive (Negative); Influenza B QL RT-PCR Negative (Negative); RSV RNA, RT-PCR Negative (Negative); SARS-CoV-2 RNA PCR Negative (Negative)
== END 2024-06-26 21:30 ==
PROVIDERS: Emergency Provider Emergency Medicine; PCP Physician Assistant
DX: J11.1 Influenza due to unidentified influenza virus with other respiratory manifestations (principal); Z20.822 Contact with and (suspected) exposure to COVID-19
CPT/HCPCS: 71045; 87637; 94640; 99283; A9270